=== PATIENT | female | born 1960 | race African-American/Black ===

== ENCOUNTER → 2016-03-01 16:20 | Outpatient (CLI) | payer MEDICARE ==
[2015-11-22 23:57] VITALS: BMI 41.3
[~2016-03-01 16:20] MED LIST: AMBIEN10 MG PO; ASPIRIN 81 MG E81 MG PO; BENICAR HCT 40-1 TA1 PO; BENICAR40 MG PO; BETAPACE 120 M120 MG PO; BETAPACE240 MG PO; CARAFATE1 G PO; CARAFATE1 G/10 ML PO; CARDIZEM CD120 MG PO; CARDIZEM CD240 MG PO; CATAPRES0.1 MG PO; COREG25 MG PO; COZAAR100 MG PO; ELIQUIS2.5 MG PO; ELIQUIS5 MG PO; FERREX 150 PLUS1 CAP PO; HYDRALAZINE HCL25 MG PO; HYDRALAZINE HCL50 MG PO; HYDROCODON-ACE1 EAC7 PO; IMDUR60 MG PO; K-DUR20 MEQ PO; NITRO-DUR0.1 MG TRANSDERM; NITROSTAT0.4 MG SL; NORVASC10 MG PO; PLAVIX75 MG PO; PRAVACHOL40 MG PO; PREVACID30 MG PO; PROAIR HFA8.5 GM INH; PROTONIX40 MG PO; RYTHMOL150 MG PO; STERAPRED 5MG 125 MG PO; TOPROL XL25 MG PO; ULTRAM50 MG PO; [UNRECOGNIZED DRUG - REMARK] PO
== END | disposition home or self-care (01) ==
LOC: D.MAMMO 10:30
DX: R92.8 Other abnormal and inconclusive findings on diagnostic imaging of breast (principal)

== ENCOUNTER 2016-05-12 08:32 | Day surgery (SDC) | payer MEDICARE ==
[~2016-05-12] VITALS: Ht 162.6 cm; Wt 110.5 kg
[~2016-05-12 08:32] MED LIST changes: -NITRO-DUR0.1 MG TRANSDERM
[2016-05-12 09:22] VITALS: BP 136/85; Ht 162.6 cm; Wt 110.5 kg
[2016-05-12] MEDS ORDERED: NITRO-DUR0.1 MG TRANSDERM (09:34)
[2016-05-12 10:19] LABS: ANION GAP 12.5 mmol/L (8-16); CALCIUM 8.8 mg/dL (8.5-10.1); CREATININE - SERUM 1.2 mg/dL (0.6-1.3); POTASSIUM - SERUM 3.5 mmol/L (3.5-5.1)
[2016-05-12 10:21] LABS: BASOPHILS 0.4 % (0.0-2.0); EOSINOPHILS 1.1 % (0-7); HEMOGLOBIN 12.8 g/dL (12-16); LYMPHOCYTES 44.1 % (15-50); MCH 25.2 pg (26.0-34.0); MCV 78.9 fL (80.0-100.0); MEAN PLATELET VOLUME 12.1 fL (7.4-10.4); MONOCYTES 7.1 % (2-11); NEUTROPHILS 47.3 % (40-80); PLATELET COUNT 251 10x3/uL (130-400); RBC 5.07 10x6/uL (4.00-5.40); RDW 16.6 % (11.5-14.5); WBC 5.5 10x3/uL (4.8-10.8)
[2016-05-12 11:15] LABS: APTT 29.9 SECONDS (22.8-39.4); INR 1.03 (0.85-1.17); PROTIME 13.4 SECONDS (11.6-15.0)
--- NOTE | 2016-05-12 13:57 | NUR ---
IV DC WITH CATHER TIP INTACT
--- NOTE | 2016-05-12 14:15 | NUR ---
1250-DILATE ESOPHAGUS WIH 54 SAVORY DILATOR.
--- NOTE | 2016-05-16 18:58 | HP ---
PATIENT: ANTHONY MENDOZA MEDICAL RECORD: [id number] ACCOUNT: [id number] LOCATION:[facility] : 56 ADMISSION DATE: 05/12/16 HISTORY AND PHYSICAL EXAMINATION REFERRING PHYSICIAN: Dora Laura MD. HISTORY OF PRESENT ILLNESS: The patient is a 56-year-old black female, who basically presents for evaluation of persistent reflux symptomatology, mainly in the upper chest area associated with occasional oropharyngeal dysphagia. She has not had much response to trials with PPIs and Carafate. She actually had an EGD back in 2014 that revealed H. pylori gastritis, but otherwise normal. She had a recent normal colonoscopy in October 2015, other than small internal hemorrhoids. She was now for further evaluation. She has been dealing with some problems with iron deficiency anemia. She had been on aspirin, Plavix and Eliquis recently, but her aspirin has been discontinued. PAST MEDICAL HISTORY: As above. She also has hypertension, AFib and cerebrovascular disease. PAST SURGICAL HISTORY: Negative. FAMILY HISTORY: Negative for GI disease. SOCIAL HISTORY: The patient is a former smoker. She denies alcohol use. REVIEW OF SYSTEMS: Noncontributory other than in HPI. CURRENT MEDICATIONS: Include Benicar/HCTZ, Plavix, diltiazem, Eliquis, hydralazine, potassium, pravastatin, sotalol and Carafate. PHYSICAL EXAMINATION: GENERAL: Reveals a well-developed, well-nourished, middle-aged black female in no acute distress. VITAL SIGNS: Stable. She is afebrile. CHEST: Clear. HEART: Regular rate and rhythm. ABDOMEN: Soft, nontender. EXTREMITIES: No edema. IMPRESSION: 1. Persistent atypical reflux symptomatology associated with occasional dysphagia of uncertain etiology. Rule out a component of "irritable esophagus", atypical reflux disease, etc. 2. History of iron deficiency anemia diagnosed in late January 2015, still of unclear etiology, probably due to her multiple blood thinners that she has been taking. She had a recently normal colonoscopy other than small internal hemorrhoids as noted above. PLAN: EGD. TRANSINT:[id number] Voice Confirmation ID: [id number] DOCUMENT ID: [id number] HISTORY AND PHYSICAL [id number] ANTHONY MENDOZA JOHN MD at 1240 CC: DORA LAURA MD [id number] DICTATION DATE: 05/12/16 1241 CONCRETE BLOCK MAKER: 05/12/[address] [facility] [place] 05/12/16 [place] [id number] [place] [address]
--- NOTE | 2016-05-16 18:58 | PRO ---
PATIENT:ANTHONY MENDOZA MEDICAL RECORD: [id number] : 56 LOCATION:D.OPS ADMISSION DATE: 05/12/16 PROCEDURE PERFORMED BY: CANDI LIN MD DATE OF PROCEDURE: 05/12/2016 CRACKING MACHINE OPERATOR: Candi Lin MD PROCEDURE: EGD with biopsy times 2 and Savary dilatation to a 54-Singaporean size. INDICATION: The patient is a 56-year-old black female with history of coronary artery disease, AFib, and hypertension, who basically presents for evaluation of persistent problems with atypical reflux, mainly in the upper chest area associated with occasional oropharyngeal dysphagia. She has not been responsive to Carafate and/or PPIs, it seems. She had a normal EGD in 2014 other than H. pylori gastritis, which was supposedly treated with appropriate antibiotics. She had a normal colonoscopy last year and small internal hemorrhoids. She is now for repeat EGD. PREMEDICATION: Taper anesthesia. INSTRUMENT: Olympus video gastroscope. FINDINGS: The endoscope was passed through the oropharynx to the second portion of the duodenum without difficulty. The esophagus was essentially normal. There was minimal stenosis at the GE junction. I therefore, dilated with a 54-Singaporean Savary dilator. I also took some biopsies from the mid esophagus to rule out eosinophilic esophagitis, microscopic reflux esophagitis, etc. In the stomach, there is no significant hiatal hernia and there was no active esophagitis seen. The stomach was entered and was remarkable for very mild antral gastritis with one tiny erosion in the prepyloric area. This area was biopsied to try to document H. pylori eradication. The duodenum was entered and was completely normal. The patient tolerated the procedure well without complication. IMPRESSION: 1. Minimal stenosis at the GE junction, now status post Savary dilatation with a 54-Singaporean size. 2. Minimal antral gastritis with one tiny erosion in the prepyloric area, now status post biopsy to rule out H. pylori eradication. 3. Otherwise, normal EGD without any obvious reason seen to account for the patient's symptomatology. RECOMMENDATIONS: 1. Follow up biopsy results times 2. 2. Okay to continue Carafate. Consider trying a PPI once again. 3. Follow up with me on an as needed basis. TRANSINT:[id number] Voice Confirmation ID: [id number] DOCUMENT ID: [id number] PROCEDURE NOTE [id number] MENDOZA,CANDI OCONNELL MD at 1858 CC: ZHAO LAURA MD [id number] DICTATION DATE: 05/12/16 1258 COMBINING MACHINE OPERATOR: 05/13/16 0040 [facility] [place] 05/12/16 [facility] [address] [place] [address]
== END 2016-05-12 14:15 | disposition home or self-care (01) ==
LOC: D.OPS 08:32
PROVIDERS: Anesthesiology
DX: R13.10 Dysphagia, unspecified (principal); R10.9 Unspecified abdominal pain; F17.200 Nicotine dependence, unspecified, uncomplicated; J45.909 Unspecified asthma, uncomplicated; I10 Essential (primary) hypertension; K21.9 Gastro-esophageal reflux disease without esophagitis; Z95.5 Presence of coronary angioplasty implant and graft; K29.70 Gastritis, unspecified, without bleeding; K22.2 Esophageal obstruction; I25.119 Atherosclerotic heart disease of native coronary artery with unspecified angina pectoris

== ENCOUNTER 2016-06-10 12:44 | Emergency (ER) | payer MEDICARE ==
[2016-05-12 09:22] VITALS: BMI 41.8
[~2016-06-10 12:44] MED LIST changes: +NITRO-DUR0.1 MG TRANSDERM
[2016-06-10 14:37] LABS: BASOPHILS 0.2 % (0-2); EOSINOPHILS 0.7 % (0-7); HEMATOCRIT 34.5 % (36.0-48.0); HEMOGLOBIN 10.9 g/dL (12-16); IMMATURE GRANULOCYTES 0.3 % (0-5); MCH 24.8 pg (26.0-34.0); MCHC 31.6 g/dL (31.0-37.0); MCV 78.4 fL (80.0-100.0); MEAN PLATELET VOLUME 11.5 fL (7.4-10.4); MONOCYTES 5.7 % (2-11); NEUTROPHILS 52.1 % (40-80); PLATELET COUNT 292 10x3/uL (130-400); RDW 17.8 % (11.5-14.5); WBC 5.8 10x3/uL (4.8-10.8)
[2016-06-10 14:58] LABS: ALKALINE PHOSPHATASE 154 U/L (46-116); ALT (SGPT) 20 U/L (10-68); BILIRUBIN - TOTAL 0.39 mg/dL (0.2-1.3); CALC OSMOLALITY 283 mosm/kg (275-300); CALCIUM 8.8 mg/dL (8.5-10.1); CARBON DIOXIDE 28.6 mmol/L (21.0-32.0); CHLORIDE - SERUM 105 mmol/L (98-107); CREATININE - SERUM 0.8 mg/dL (0.6-1.3); GLUCOSE 92 mg/dL (74-106); PROTEIN - SERUM 7.2 g/dL (6.4-8.2); SODIUM 142 mmol/L (136-145); UREA NITROGEN 14 mg/dL (7-18); eGFR NON AFRICAN AMERICAN 78 mL/min (90-120)
[2016-06-10 15:06] LABS: AMYLASE - SERUM 93 U/L (25-115); LIPASE 113 U/L (73-393); PRO BNP 1979 pg/mL (0-125); TROPONIN-I 0.029 ng/mL (0.000-0.060)
== END 2016-06-10 17:05 | disposition home or self-care (01) ==
LOC: D.ER 12:44
PROVIDERS: Family Medicine
DX: R53.1 Weakness (principal); I48.92 Unspecified atrial flutter; I10 Essential (primary) hypertension; I25.10 Atherosclerotic heart disease of native coronary artery without angina pectoris; E87.6 Hypokalemia

== ENCOUNTER → 2016-06-16 | Emergency (ER) | payer MEDICARE ==
[2016-05-12 09:22] VITALS: BMI 41.8
--- NOTE | ~2016-06-16 | HEMODYNAMI ---
PATIENT:ANTHONY MENDOZA MEDICAL RECORD: [id number] : 56 LOCATION:[facility] ADMISSION DATE: 06/16/16 Generatedon:06/16/201613:01 Patient name: ANTHONY MENDOZA Patient #: [id number] SSN: D OB: 1960 Date of study: 06/16/2016 Page: Of Hemodynamic Procedure Report Patient Data Patient Demographics Procedure consent was obtained First Name: ANTHONY Gender: Female Last Name: REJI : 1960 [facility] Initial: ESTER Age: 56 year(s) Patient #: [id number] Race: Black Additional ID: [id number] Contact details [address]: [address] [place] [address] 2 State: [place] City: [facility] Zip code: [address] Past Medical History History of disease Date Diagnosis Comments CAD Allergies Allergen Reaction Date Comments Reported Other allergy 02/06/2014 Amiodarone, Benazepril, Flu Shot, Lactulose Other allergy 05/25/2014 Milk Other allergy 05/25/2014 Flu vaccine Other allergy 05/25/2014 Loenazepril Admission Admission Data Admission Date: 06/16/2016 Admission Time: 9:34 Lab Results Lab Result Date: 06/16/2016 Lab Result Time: 12:50 Biochemistry Name Units Result Min Max CK-MB ng/ml 0.8 --(*---)-- 0 3.6 Creatinine l 79 --(-*--)-- 21 215 Kinase Troponin l ng/ml 0.017 --(-*--)-- 0 0.06 Procedure Procedure Types Cath Procedure Diagnostic Procedure [facility] w/Coronaries PCI Procedure Coronary Stent Initial Miscellaneous Procedures Moderate Sedation up to 15 minutes Procedure Description Procedure Date Procedure Date: 06/16/2016 Procedure Start Time: 12:46 Procedure End Time: 13:01 Procedure Staff Name Function Dax Reynoso MD Performing Physician Zurdo Gonzalez RT Scrub Elena Osorio RN Nurse Kevin Suit RT Monitor Procedure Data Cath Procedure Fluoroscopy Diagnostic fluoroscopy Total fluoroscopy Time: 1.5 time: 1.5 min min Diagnostic fluoroscopy Total fluoroscopy dose: dose: 519.81 mGy 519.81 mGy Contrast Material Contrast Material Type Amount (ml) Isovue 300 87 Entry Location Entry Primary Successful Side Size Upsize Upsize Entry Closure Succes sful Closure Location (Fr) 1 (Fr) 2 (Fr) Remarks Device Remarks Femoral Right 5 Fr Exoseal artery Diagnostic catheters Device Type Used For End Catheter Placement Cordis 5Fr Pigtail LV Angiography Catheter (MP) Cordis 5Fr JL 4.0 Left Coronary Catheter (MP) Angiography Cordis 5Fr 3DRC Catheter Right Coronary (MP) Angiography Procedure Complications No complications Procedure Medications Medication Administration Route Dosage Oxygen NC 2 l/min Heparin Flush Bag added to field 2 bags (1000units/500ml NS) Lidocaine 2% added to field 20 Versed I.V. 1 mg Fentanyl I.V. 50 mcg Heparin Bolus I.V. 4000 units Versed I.V. 1 mg Fentanyl I.V. 50 mcg Hemodynamics Rest HGB: 12.4 (g/dl) Heart Rate: 87 (bpm) Snapshots Pre Cath Intra NCS Post Cath Vital Signs Time Heart Resp SPO2 NIBP (mmHg) Rhythm Pain Sedation Rate (ipm) (%) Status Level (bpm) 12:32:37 93 15 100 190/118(154) A-Flutter 0 (11) 10(A) , No pain 12:37:01 81 21 100 182/110(135) A-Flutter 0 (11) 10(A) , No pain 12:41:32 83 18 100 166/100(137) A-Flutter 0 (11) 10(A) , No pain 12:45:58 91 14 98 147/113(127) A-Flutter 0 (11) 10(A) , No pain 12:50:10 83 19 97 139/91(121) A-Flutter 0 (11) 9(A) , No pain 12:54:26 92 14 98 143/100(116) A-Flutter 0 (11) 9(A) , No pain 12:57:16 80 12 99 152/101(133) A-Flutter 0 (11) 9(A) , No pain Medications Time Medication Route Dose Verified Delivered Reason Notes Effectiveness by by 12:34:44 Oxygen NC 2 Dax Elena Per physician l/min Edgardo Osorio RN 12:35:00 Heparin Flush added 2 Dax Verduzco used for Bag to bags Edgardo Reynoso MD procedure (1000units/500ml field NS) 12:35:11 Lidocaine 2% added 20ml Dax Verduzco used for to vial Edgardo Reynoso MD procedure field 12:45:34 Versed I.V. 1 mg Dax Elena for sedation Edgardo Osorio RN 12:45:40 Fentanyl I.V. 50 Dax Elena for sedation mcg Edgardo Osorio RN 12:47:36 Versed I.V. 1 mg Dax Elena for sedation Edgardo Osorio RN 12:47:43 Fentanyl I.V. 50 Dax Elena for sedation mcg Edgardo Osorio RN 12:51:04 Heparin Bolus I.V. 4000 Dax Elena for dose units Edgardo Osorio RN anticoagulation verfied with dr reynoso Procedure Log Time Note 12:10:07 Zurdo Gonzalez RT(R) sent for patient. Start room use. 12:16:51 ACC Patient presents with Stable Angina CCS Anginal Class 1--Ordinary physical activity does not cause angina, angina occurs with strenuos, rapid, or prolonged activity.. 12:16:53 ACC Patient presents with Unstable Angina CCS Anginal Class 3--Marked limitation of physical activity, angina occurs with ordinary activity.. 12:17:05 Diagnostic Cath status Urgent 12:18:19 Time tracking: Regular hours 12:18:26 Plan of Care:Hemodynamics will remain stable., Cardiac rhythm will remain stable., Comfort level will be maintained., Respiratory function will remain adequate., Patient/ family verbilizes understanding of procedure., Procedure tolerated without complication., Recovers from procedure without complications.. 12:25:56 Patient received from ED to CCL 3 Alert and oriented. Tansferred to table in Supine position. 12:31:06 Warm blankets applied, and ja hugger turned on for patient comfort. 12:31:06 Correct patient and procedure confirmed by team. 12:31:07 Signed procedure consent form obtained from patient. 12:31:08 ECG and BP/O2 sat monitors applied to patient. 12:31:18 Vital chart was started 12:34:44 Oxygen 2 l/min NC was administered by Elena Osorio RN; Per physician; 12:35:00 Heparin Flush Bag (1000units/500ml NS) 2 bags added to field was administered by Dax Reynoso MD; used for procedure; 12:35:11 Lidocaine 2% 20ml vial added to field was administered by Dax Reynoso MD; used for procedure; 12:40:04 Baseline sample Acquired. 12:40:34 Rhythm: atrial flutter 12:40:36 Full Disclosure recording started 12:40:40 H&P Date Dictated: 06/16/2016 Within 30 days and on chart.. 12:41:09 Pre-procedure instructions explained to patient. 12:41:11 Family unavailable. 12:41:14 Patient NPO since Breakfast. 12:41:45 Is the patient allergic to Iodine/contrast media? No. 12:41:49 Is patient on blood thinner?Yes 12:41:52 ACC The patient was administered the following blood thiners within the last 24 hours: ACCPlavix, Eliquis 12:41:55 Patient diabetic? No. 12:41:56 ----Pre-sedation anethsthesia assessment.---- 12:41:59 Previous problem with sedation/anesthesia? No ? 12:42:00 Snore? Yes 12:42:01 Sleep apnea? Yes 12:42:02 Deviated septum? No 12:42:04 Opens mouth fully? Yes 12:42:05 Sticks out tongue? Yes 12:42:07 Airway obstruction? No ? 12:42:09 Dentures? No ? 12:42:12 Pre procedure: right dorsailis pedis pulse 1+ Palpable, but thready & weak; easily obliterated 12:42:19 Patient pain scale 4/10 cp. 12:42:28 IV patent on arrival in right forearm with 0.9% NaCl at 10ml/hr. 12:45:10 Lab Result : Creatinine 1.1 mg/dl 12:45:10 Lab Result : BUN 20 mg/dl 12:45:10 Lab Result : Hemoglobin 12.4 g/dl 12:45:10 Lab Result : INR 1.09 units 12:45:10 Lab Result : PT 13.9 sec 12:45:16 Lab results completed and on chart. 12:45:19 Right groin area was prepped with chlora-prep and draped in sterile fashion 12:45:19 Alarms reviewed by R. N. 12:45:20 Sharps counted by scrub and verified by R.N. 12:45:20 --------ALL STOP TIME OUT------ 12:45:21 Final Timeout: patient, procedure, and site verified with staff and physician. All members of the team are in agreement. 12:45:22 Right groin site verified by team. 12:45: Physical assessment completed. ASA score P 2 - A patient with mild systemic disease as per Dax Reynoso MD. 12:45:30 Sedation plan: IV Moderate Sedation Versed, Fentanyl 12:45:34 Versed 1 mg I.V. was administered by Elena Osorio RN; for sedation; 12:45:40 Fentanyl 50 mcg I.V. was administered by Elena Osorio RN; for sedation; 12:45:41 Zero performed for pressure channel P1 12:45:46 Zero performed for pressure channel P1 12:45:56 Use device set Femoral Dx 12:45:57 Acist Syringe opened to sterile field. 12:45:57 Bag Decanter opened to sterile field. 12:45:58 Medline Cath Pack opened to sterile field. 12:45:58 Terumo 5Fr [place] Sheath opened to sterile field. 12:45:59 St Andrae 260cm J .035 wire opened to sterile field. 12:46:00 Acist Hand Control opened to sterile field. 12:46:01 Acist Manifold opened to sterile field. 12:46:01 Diagnostic Infinity 5Fr Multipack catheter opened to sterile field. 12:46:01 Tegaderm 4 x 4 opened to sterile field. 12:46:18 Procedure started. 12:46:26 Local anesthetic to right femoral artery with Lidocaine 2% by Dax Reynoso MD.INITIAL ACCESS ONLY 12:46:34 A 5 Fr sheath was inserted into the Right Femoral artery 12:46:40 A Cordis 5Fr Pigtail Catheter (MP) was advanced over the wire and used for LV Angiography. 12:46:44 LV angiography performed. 12:46:46 LV gram done using SOSA 12:46:51 Injector settings: Ml/sec: 10, Volume: 20, 12:47:00 EF : 40 % 12:47:08 Catheter removed. 12:47:13 A Cordis 5Fr JL 4.0 Catheter (MP) was advanced over the wire and used for Left Coronary Angiography. 12:47:16 LCA angiography performed. 12:47:36 Versed 1 mg I.V. was administered by Elena Osorio RN; for sedation; 12:47:43 Fentanyl 50 mcg I.V. was administered by Elena Osorio RN; for sedation; 12:48:42 Catheter removed. 12:49:23 A Cordis 5Fr 3DRC Catheter (MP) was advanced over the wire and used for Right Coronary Angiography. 12:50:31 Lab Result : CK-MB 0.8 ng/ml 12:50:31 Lab Result : Creatinine Kinase 79 l 12:50:31 Lab Result : Troponin l 0.017 ng/ml 12:50:39 RCA angiography performed. 12:50:40 Catheter removed. 12:50:48 ACC PCI Site: pLAD has 80% stenosis. 12:50:50 ACC Pre-intervention HOLDEN Flow is 3. 12:51:04 Heparin Bolus 4000 units I.V. was administered by Elena Osorio RN; for anticoagulation; dose verfied with dr reynoso 12:51:27 6 Fr XBLAD 3.5 guide catheter was inserted over the wire 12:52:17 WHISPER wire advanced. 12:53:48 Inflation Number: 1 A Biofreedom 3.5 x 8 stent was prepped and advanced across the Prox LAD. The stent was deployed at 15 ARCHANA for 0:12 (min:sec). 12:53:51 Stent catheter was removed intact over wire. 12:53:51 Wire removed. 12:53:51 Guide catheter removed. 12:55:21 Contrast amount:Isovue 300 87ml. 12:55:29 Sheath removed intact; hemostasis achieved with Exoseal to the Right Femoral artery. 12:55:31 Procedure ended.(Physican Out) 12:55:40 Fluoroscopy time 01.50 minutes. 12:55:50 Fluoroscopy dose: 519.81 mGy 12:55:50 Flurop Dose total: 519.81 12:55:52 Sharps counted by scrub and verified by R.N. 12:55:53 Insertion/operative site no bleeding no hematoma. 12:55:55 Post-op/insertion site Right Femoral artery dressed using a 4 x 4 and Tegaderm. 12:55:58 Post right femoral artery:stable 12:56:02 Post Procedure Pulses reassessed and unchanged 12:56:07 Post procedure rhythm: atrial flutter 12:56:09 Post procedure instruction explained to patient.Patient verbalizes understanding. 12:56:23 Procedure type changed to Cath procedure, Diagnostic procedure, LHC, LHC w/Coronaries, PCI procedure, Coronary Stent Initial, Miscellaneous Procedures, Moderate Sedation up to 15 minutes 12:56:27 Procedure and supply charges have been captured, reviewed, submitted and are correct. 12:56:41 Tenorio Whisper J 300cm 0.014 guide wire opened to sterile field. 12:56:42 Merit BasixCompak Inflation Kit opened to sterile field. 12:56:42 Terumo 6Fr [place] Sheath opened to sterile field. 12:56:42 Cordis 6FR XBLAD 3.5 guide catheter opened to sterile field. 12:56:43 Cordis 6Fr Exoseal opened to sterile field. 12:56:48 Procedure Complication : No complications 13:00:59 Vital chart was stopped 13:01:00 See physician's report for complete and final results. 13:01:02 Report given to Pre/Post Procedure Room. 13:01:05 Patient transfered to Pre/Post Procedure Room with Stretcher. 13:01:06 Procedure ended. 13:01:06 Full Disclosure recording stopped 13:01:12 End room use (Document Last) 13:01:12 End room use (Document Last) Intervention Summary Intervention Notes Time ActionType Lesion and Equipment Action# Pressure Duration Attributes Used 12:53:48 Place stent Prox LAD Biofreedom 1 15 00:12 3.5 x 8 stent Device Usage Item Name Manufacture Quantity Catalog Hospital Part Current Minimal Lot# / Number Charge Number Stock Stock Serial# Code [facility] Acist 1 54636 483067 083942 135478 20 Syringe [employer] Inc Bag Microtek 1 2002S 887819 99554 785790 5 Dec[employer]canbesponsored [employer]. Medline Cardinal 1 [id number] 448907 08019 177907 5 Cath Alticast Terumo 5Fr Terumo 1 ERW747 415282 776644 434423 [address] Andrae 1 560471 974437 118052 349306 30 260cm J .035 wire Acist Hand Acist 1 72830 063424 450347 165227 5 Control Medical Systems Inc Acist Acist 1 65905 140004 390268 732582 5 Manifold Medical Systems Inc Diagnostic Cardinal 1 MG9089 816707 88100 206600 30 quietrevolutionity Health 5Fr Multipack catheter Tegaderm 4 3M 1 1626W 184480 666837 745003 5 x 4 Cordis 5Fr Cardinal 1 888892 5 Pigtail Health Catheter (MP) Cordis 5Fr Cardinal 1 025890 5 JL 4.0 Health Catheter (MP) Cordis 5Fr Cardinal 1 573051 5 [facility] Health Catheter (MP) Biofreedom Biosensors 1 [facility]2-9515 348046 359766 5 [id number] 3.5 x 8 [employer] SA stent Tenorio Tenorio 1 [id number] 919782 999016 888814 5 Whisper J Vascular 300cm 0.014 guide wire Merit Merit 1 OQ5677 484954 302243 958920 15 Pro[employer] Medical Inflation Kit Terumo 6Fr Terumo 1 PRV521 295923 768176 606308 40 [place] Sheath Cordis 6FR Cardinal 1 [id number] 623764 727920 147067 10 XBLAD 3.5 Health guide catheter Cordis 6Fr Cardinal 1 EX600 676644 251080 746493 10 [facility] Signature Audit Mittie Stage Time Signature Unsigned Intra-Procedure 06/16/2016 Kevin Johnson 1:01:50 PM RT(R) Signatures Monitor : Kevin Johnson RT Signature : Date : Time : [facility] [address] [facility] [address]
[2016-06-16 10:04] LABS: BASOPHILS 0.1 % (0-2); EOSINOPHILS 0.7 % (0-7); HEMOGLOBIN 12.4 g/dL (12-16); IMMATURE GRANULOCYTES 0.1 % (0-5); LYMPHOCYTES 43.7 % (15-50); MCH 25.3 pg (26.0-34.0); MCHC 31.8 g/dL (31.0-37.0); MCV 79.6 fL (80.0-100.0); MEAN PLATELET VOLUME 11.4 fL (7.4-10.4); MONOCYTES 6.8 % (2-11); NEUTROPHILS 48.6 % (40-80); RDW 17.8 % (11.5-14.5); WBC 6.9 10x3/uL (4.8-10.8)
[2016-06-16 10:06] LABS: PLATELET COUNT 358 10x3/uL (130-400)
[2016-06-16 10:23] LABS: ALBUMIN 3.1 g/dL (3.4-5.0); ALKALINE PHOSPHATASE 142 U/L (46-116); ALT (SGPT) 19 U/L (10-68); BILIRUBIN - TOTAL 0.27 mg/dL (0.2-1.3); CALC OSMOLALITY 282 mosm/kg (275-300); CALCIUM 9.1 mg/dL (8.5-10.1); CARBON DIOXIDE 29.4 mmol/L (21.0-32.0); CHLORIDE - SERUM 105 mmol/L (98-107); CREATININE - SERUM 1.1 mg/dL (0.6-1.3); GLUCOSE 111 mg/dL (74-106); POTASSIUM - SERUM 3.3 mmol/L (3.5-5.1); SODIUM 140 mmol/L (136-145); UREA NITROGEN 20 mg/dL (7-18); eGFR NON AFRICAN AMERICAN 54 mL/min (90-120)
[2016-06-16 10:38] LABS: APTT 34.7 SECONDS (22.8-39.4); CKMB 0.8 U/L (0.0-3.6); CREATINE KINASE 79 UL (21-215); INR 1.09 (0.85-1.17); PROTIME 13.9 SECONDS (11.6-15.0)
[2016-06-16 10:41] LABS: TROPONIN-I < 0.017 ng/mL (0.000-0.060)
--- NOTE | 2016-06-16 13:32 | NUR ---
1330-RESTING WITH RIGHT LEG STRAIGHT, GROIN-CDI, NO HEMATOMA OR BLEEDING AT SITE, SOFT TO TOUCH.
--- NOTE | 2016-06-16 14:12 | NUR ---
1400-RESTING WITH EYES CLOSED, RIGHT GROIN REMAINS CDI, SOFT TO TOUCH
--- NOTE | 2016-06-16 17:30 | NUR ---
1630-LAB HERE FOR POST BLOOD DRAW, EKG DONE. 1650-IV D'C WITH CATH TIP INTACT, WRITTEN AND VERBAL INSTRUCTIONS GIVEN, AWAITING AUNT FOR TRANSPORTATION, TAKEN TO [place] TO WAIT WITH FRIEND.
--- NOTE | 2016-06-19 10:25 | OP ---
PATIENT NAME: ANTHONY MENDOZA MEDICAL RECORD: [id number] :56 LOCATION:D.ER ADMISSION DATE: SURGEON: LULY DORAN MD DATE OF OPERATION: 06/16/2016 PROCEDURES: 1. PTCA stent LAD. 2. Left heart catheterization. 3. Selective coronary angiography. 4. Left ventriculogram. INDICATION: Angina and coronary artery disease. PROCEDURE IN DETAIL: After informed consent was obtained and after detailed explanation of risks, benefits as well as alternative therapies, the patient elected to proceed with angiogram and angioplasty. The right femoral area was prepped and draped in normal sterile fashion. Right femoral artery was cannulated via modified Seldinger technique with placement of 6-Eritrean sheath. All catheters exchanged through this sheath. FINDINGS: The left ventriculogram was performed in standard 30-degree SOSA view, reveals mild global hypokinesis. Overall ejection fraction 40%. SELECTIVE CORONARY ANGIOGRAPHY: 1. Left main showed no significant angiographic disease. 2. Left anterior descending has previously placed stent proximally. There is at least 80% in-stent restenosis. 3. Left circumflex has a previously stent proximally, as does ramus intermedius, these are widely patent with no significant restenosis. No disease elsewise throughout the circumflex or its branches. 4. Right coronary has moderate irregularities, but no flow-limiting stenosis. PTCA STENT OF THE LAD: The stent used is a 3.5 x 8 mm BioFreedom. There was HOLDEN 3 flow before and after the intervention. The lesion was approximately 6 mm in length and it was a 3.5 mm vessel. OVERALL IMPRESSION: Successful percutaneous transluminal coronary angioplasty stent of the left anterior descending going from 80% initial stenosis to 0% residual. TRANSINT:[id number] Voice Confirmation ID: [id number] DOCUMENT ID: [id number] LULY DORAN MD at 1025 CC: [id number] DICTATION DATE: 06/16/16 1307 JANITORIAL CLEANER: 06/16/16 1549 [place] [id number]
--- NOTE | 2016-06-19 10:25 | CN ---
PATIENT NAME:ANTHONY MENDOZA MEDICAL RECORD: [id number] : 56 LOCATION:.ER ADMIT DATE: ACCOUNT: [id number] CONSULTING PHYSICIAN: LULY DORAN MD REFERRING PHYSICIAN: ADARSH TENOROI MD DATE OF CONSULTATION: 06/16/2016 ADMITTING DIAGNOSES: 1. Unstable angina. 2. Coronary artery disease. 3. Previous multivessel percutaneous transluminal coronary angioplasty stent, last being in April of 2015. 4. Atrial fibrillation, chronic. 5. Eliquis anticoagulation for atrial fibrillation. 6. Hypertension. 7. Asthma. 8. Gastroesophageal reflux disease. HISTORY OF PRESENT ILLNESS: Mrs. Mendoza presents with angina. She presented with similar angina 2 weeks ago. She has continued to have a burning sensation in her chest. Last cardiac intervention was in April. This is very similar to her previous angina. She is in atrial fibrillation. She is on Eliquis. PHYSICAL EXAMINATION: GENERAL APPEARANCE: Well-nourished, well-developed, appears stated age. Level of distress, comfortable. PSYCHIATRIC: Mental status, alert, normal affect. Orientation, oriented to time, place and person. EYES: Lids and conjunctiva, noninjected. No discharge, no pallor. ENT: Lips, teeth, gums, normal dentition. Oropharynx, no cyanosis, no pallor. NECK: Carotid arteries, bilateral normal upstroke, no bruits, no thrills. JUGULAR VEINS: No jugular venous pressure or distention. CERVICAL LYMPH NODES: Nontender, nonenlarged. THYROID: Not enlarged. Nontender. No nodules. LUNGS: Respiratory effort, unlabored. CHEST: Normal curvature. No thoracic deformity. No chest wall tenderness. Percussion, resonant. Auscultation, clear. No wheezes, no rales, no rhonchi. CARDIOVASCULAR: Precordial exam, nondisplaced. No heaves or pericardial thrills. Rate and rhythm, regular. Heart sounds, normal S1, normal S2. No S3, no gallop, no rub. Systolic murmur, not heard. Diastolic murmur, not heard. EXTREMITIES: No cyanosis, no edema. Peripheral pulses, full and equal in all extremities, except as noted. No bruits appreciated. ABDOMEN: Soft, nondistended. Normal aorta. No bruit. Nontender. No masses. Liver, nontender, no hepatomegaly. Spleen, nontender, no splenomegaly. MUSCULOSKELETAL: No joint tenderness. No joint swelling. No erythema. NEUROLOGICAL: Normal gait, normal strength, normal tone. SKIN: Warm and dry. REVIEW OF SYSTEMS: The patient reports easy bruising but reports no swollen glands. The patient reports no fever, no night sweats, no significant weight gain, no significant weight loss. No significant exercise tolerance. The patient reports no dry eyes, no irritation, no vision change. Patient reports no difficulty hearing and no ear pain. Patient reports no frequent nose bleeds or nose and sinus problems. Patient reports on arm pain on exertion. No shortness of breath while lying down. No history of heart murmur. Patient CONSULT REPORT [id number] REJIANTHONY NORMAN reports no cough, no wheezing or coughing up blood. Patient reports no abdominal pain, no vomiting. Normal appetite. No diarrhea and not vomiting blood. No nausea and no constipation. Patient reports no incontinence. No difficulty urinating. No hematuria. No increased frequency. Patient reports no muscle aches. No weakness, no arthralgias, no back pain. No swelling of the extremities. Patient reports no abnormal mole, no jaundice, no rashes. Reports no loss of consciousness. No weakness and no numbness. No seizures, dizziness, or headaches. The patient reports no depression, no sleep disturbance, feeling safe in a relationship and no alcohol abuse. Patient reports on fatigue. Reports no runny nose or sinus pressure. No itching, no hives, and no frequent sneezing. OVERALL IMPRESSION: Chest pain compatible with angina in a patient with a past history of multivessel coronary artery disease. Most likely, she has recurrent hemodynamically significant coronary artery disease. We will proceed with coronary angiography. Further care depends on the findings of the angiography. TRANSINT:[id number] Voice Confirmation ID: [id number] DOCUMENT ID: [id number] LULY DORAN MD at 1025 CC: [id number] DICTATION DATE: 06/16/16 1058 UX INTERACTION DESIGNER: 06/16/16 1157 [facility] [address] [place] [address]
== END ==
LOC: D.ER 09:34
PROVIDERS: Emergency Medicine
DX: R07.9 Chest pain, unspecified (principal); I10 Essential (primary) hypertension; I25.10 Atherosclerotic heart disease of native coronary artery without angina pectoris; E87.6 Hypokalemia; I48.0 Paroxysmal atrial fibrillation

== ENCOUNTER 2016-06-19 01:53 | Emergency (ER) | payer MEDICARE ==
[2016-05-12 09:22] VITALS: BMI 41.8
[2016-06-19 02:51] LABS: BASOPHILS 0.1 % (0-2); EOSINOPHILS 1.1 % (0-7); HEMATOCRIT 35.3 % (36.0-48.0); HEMOGLOBIN 11.2 g/dL (12-16); IMMATURE GRANULOCYTES 0.1 % (0-5); LYMPHOCYTES 34.3 % (15-50); MCH 25.5 pg (26.0-34.0); MCHC 31.7 g/dL (31.0-37.0); MCV 80.2 fL (80.0-100.0); MEAN PLATELET VOLUME 11.1 fL (7.4-10.4); MONOCYTES 6.5 % (2-11); NEUTROPHILS 57.9 % (40-80); PLATELET COUNT 296 10x3/uL (130-400); RDW 17.8 % (11.5-14.5); WBC 7.1 10x3/uL (4.8-10.8)
[2016-06-19 03:14] LABS: ALBUMIN 2.9 g/dL (3.4-5.0); BILIRUBIN - TOTAL 0.14 mg/dL (0.2-1.3); CALCIUM 8.4 mg/dL (8.5-10.1); CARBON DIOXIDE 29.6 mmol/L (21.0-32.0); CREATININE - SERUM 0.9 mg/dL (0.6-1.3); POTASSIUM - SERUM 3.6 mmol/L (3.5-5.1); PROTEIN - SERUM 7.4 g/dL (6.4-8.2)
[2016-06-19 03:24] LABS: TROPONIN-I 0.02 ng/mL (0.000-0.060)
== END 2016-06-19 03:48 | disposition home or self-care (01) ==
LOC: D.ER 01:53
PROVIDERS: Family Medicine
DX: R20.9 Unspecified disturbances of skin sensation (principal); I10 Essential (primary) hypertension; I25.10 Atherosclerotic heart disease of native coronary artery without angina pectoris; E87.6 Hypokalemia; I48.92 Unspecified atrial flutter; I44.0 Atrioventricular block, first degree

== ENCOUNTER 2016-07-07 13:21 | Emergency (ER) | payer MEDICARE ==
[2016-05-12 09:22] VITALS: BMI 41.8
[2016-07-07 14:22] LABS: BASOPHILS 0.3 % (0-2); EOSINOPHILS 0.7 % (0-7); HEMATOCRIT 36.2 % (36.0-48.0); HEMOGLOBIN 11.6 g/dL (12-16); IMMATURE GRANULOCYTES 0.3 % (0-5); LYMPHOCYTES 37.1 % (15-50); MCH 25.3 pg (26.0-34.0); MEAN PLATELET VOLUME 11.1 fL (7.4-10.4); MONOCYTES 6.3 % (2-11); NEUTROPHILS 55.3 % (40-80); PLATELET COUNT 305 10x3/uL (130-400); RBC 4.58 10x6/uL (4.00-5.40); RDW 17.8 % (11.5-14.5); WBC 7.4 10x3/uL (4.8-10.8)
[2016-07-07 14:35] LABS: ALKALINE PHOSPHATASE 149 U/L (46-116); ALT (SGPT) 20 U/L (10-68); BILIRUBIN - TOTAL 0.23 mg/dL (0.2-1.3); CALC OSMOLALITY 289 mosm/kg (275-300); CALCIUM 9.3 mg/dL (8.5-10.1); CARBON DIOXIDE 27.3 mmol/L (21.0-32.0); CHLORIDE - SERUM 107 mmol/L (98-107); CREATININE - SERUM 1.3 mg/dL (0.6-1.3); GLUCOSE 92 mg/dL (74-106); POTASSIUM - SERUM 3.3 mmol/L (3.5-5.1); PROTEIN - SERUM 7.8 g/dL (6.4-8.2); SODIUM 143 mmol/L (136-145); UREA NITROGEN 26 mg/dL (7-18); eGFR NON AFRICAN AMERICAN 44 mL/min (90-120)
[2016-07-07 14:46] LABS: CHOL - HDL RATIO 2.3 ratio (2.3-4.1); CHOLESTEROL, TOTAL 127 mg/dL (0-200); CREATINE KINASE 94 UL (21-215); HDL CHOLESTEROL 55 mg/dL (32-96); LDL CHOLESTEROL 60 mg/dL (0-100); LDL-HDL RATIO 1.1 ratio (1.5-3.5); TRIGLYCERIDE 62 mg/dL (30-200)
[2016-07-07 14:52] LABS: TROPONIN-I < 0.017 ng/mL (0.000-0.060)
[2016-07-07 15:13] LABS: CKMB 0.6 U/L (0.0-3.6)
== END 2016-07-07 21:09 | disposition home or self-care (01) ==
LOC: D.ER 13:21
PROVIDERS: Emergency Medicine
DX: R07.9 Chest pain, unspecified (principal); I48.91 Unspecified atrial fibrillation; I10 Essential (primary) hypertension; I25.10 Atherosclerotic heart disease of native coronary artery without angina pectoris; I49.3 Ventricular premature depolarization

== ENCOUNTER 2016-08-13 10:36 | Emergency (ER) | payer MEDICARE ==
[2016-05-12 09:22] VITALS: BMI 41.8
[2016-08-13 11:07] LABS: BASOPHILS 0.2 % (0-2); EOSINOPHILS 0.9 % (0-7); HEMATOCRIT 37.7 % (36.0-48.0); HEMOGLOBIN 11.9 g/dL (12-16); IMMATURE GRANULOCYTES 0.2 % (0-5); LYMPHOCYTES 34.3 % (15-50); MCH 25.4 pg (26.0-34.0); MCHC 31.6 g/dL (31.0-37.0); MCV 80.6 fL (80.0-100.0); MEAN PLATELET VOLUME 10.9 fL (7.4-10.4); MONOCYTES 8.2 % (2-11); NEUTROPHILS 56.2 % (40-80); PLATELET COUNT 301 10x3/uL (130-400); RBC 4.68 10x6/uL (4.00-5.40); RDW 16.9 % (11.5-14.5); WBC 8.1 10x3/uL (4.8-10.8)
[2016-08-13 11:18] LABS: ALBUMIN 3.1 g/dL (3.4-5.0); ALKALINE PHOSPHATASE 163 U/L (46-116); ALT (SGPT) 21 U/L (10-68); BILIRUBIN - TOTAL 0.38 mg/dL (0.2-1.3); CALC OSMOLALITY 279 mosm/kg (275-300); CALCIUM 8.8 mg/dL (8.5-10.1); CHLORIDE - SERUM 104 mmol/L (98-107); CREATININE - SERUM 1.2 mg/dL (0.6-1.3); GLUCOSE 107 mg/dL (74-106); POTASSIUM - SERUM 3.5 mmol/L (3.5-5.1); PROTEIN - SERUM 8.1 g/dL (6.4-8.2); SODIUM 139 mmol/L (136-145); UREA NITROGEN 19 mg/dL (7-18); eGFR NON AFRICAN AMERICAN 49 mL/min (90-120)
[2016-08-13 11:30] LABS: CHOL - HDL RATIO 2.3 ratio (2.3-4.1); CHOLESTEROL, TOTAL 126 mg/dL (0-200); CKMB 0.1 U/L (0.0-3.6); CREATINE KINASE 95 UL (21-215); HDL CHOLESTEROL 56 mg/dL (32-96); LDL CHOLESTEROL 61 mg/dL (0-100); LDL-HDL RATIO 1.1 ratio (1.5-3.5); TRIGLYCERIDE 48 mg/dL (30-200)
[2016-08-13 11:36] LABS: TROPONIN-I < 0.017 ng/mL (0.000-0.060)
== END 2016-08-13 14:46 | disposition home or self-care (01) ==
LOC: D.ER 10:36
PROVIDERS: Emergency Medicine
DX: R07.9 Chest pain, unspecified (principal); R06.00 Dyspnea, unspecified; I10 Essential (primary) hypertension; F17.200 Nicotine dependence, unspecified, uncomplicated; I48.92 Unspecified atrial flutter; I44.30 Unspecified atrioventricular block; I49.3 Ventricular premature depolarization

== ENCOUNTER 2016-09-02 11:53 | Emergency (ER) | payer MEDICARE ==
[2016-05-12 09:22] VITALS: BMI 41.8
[2016-09-02 12:49] LABS: BASOPHILS 0.3 % (0-2); EOSINOPHILS 0.7 % (0-7); HEMATOCRIT 39.6 % (36.0-48.0); HEMOGLOBIN 12.4 g/dL (12-16); IMMATURE GRANULOCYTES 0.1 % (0-5); LYMPHOCYTES 36.3 % (15-50); MCH 25.1 pg (26.0-34.0); MCHC 31.3 g/dL (31.0-37.0); MCV 80.2 fL (80.0-100.0); MONOCYTES 5.7 % (2-11); NEUTROPHILS 56.9 % (40-80); PLATELET COUNT 247 10x3/uL (130-400); RBC 4.94 10x6/uL (4.00-5.40); RDW 16.5 % (11.5-14.5); WBC 6.7 10x3/uL (4.8-10.8)
[2016-09-02 13:14] LABS: ALKALINE PHOSPHATASE 148 U/L (46-116); ALT (SGPT) 20 U/L (10-68); CALC OSMOLALITY 283 mosm/kg (275-300); CALCIUM 8.9 mg/dL (8.5-10.1); CHLORIDE - SERUM 105 mmol/L (98-107); CREATININE - SERUM 0.8 mg/dL (0.6-1.3); GLUCOSE 99 mg/dL (74-106); POTASSIUM - SERUM 3.4 mmol/L (3.5-5.1); PROTEIN - SERUM 7.4 g/dL (6.4-8.2); SODIUM 143 mmol/L (136-145); UREA NITROGEN 9 mg/dL (7-18); eGFR NON AFRICAN AMERICAN 78 mL/min (90-120)
[2016-09-02 13:25] LABS: CKMB 0.2 U/L (0.0-3.6); CREATINE KINASE 90 UL (21-215); TROPONIN-I < 0.017 ng/mL (0.000-0.060)
[2016-09-02 15:47] LABS: CKMB 0.3 U/L (0.0-3.6); CREATINE KINASE 89 UL (21-215)
[2016-09-02 15:50] LABS: TROPONIN-I < 0.017 ng/mL (0.000-0.060)
== END 2016-09-02 17:46 | disposition home or self-care (01) ==
LOC: D.ER 11:53
PROVIDERS: Family Medicine
DX: R07.9 Chest pain, unspecified (principal); I10 Essential (primary) hypertension; R94.31 Abnormal electrocardiogram [ECG] [EKG]; I48.92 Unspecified atrial flutter; E11.9 Type 2 diabetes mellitus without complications

== ENCOUNTER → 2016-09-14 17:04 | Outpatient (CLI) | payer MEDICARE ==
[2016-05-12 09:22] VITALS: BMI 41.8
== END | disposition home or self-care (01) ==
LOC: D.MAMMO 13:30
DX: R92.8 Other abnormal and inconclusive findings on diagnostic imaging of breast (principal)

== ENCOUNTER 2016-09-18 07:46 | Emergency (ER) | payer MEDICARE ==
[2016-05-12 09:22] VITALS: BMI 41.8
[2016-09-18 08:24] LABS: BASOPHILS 0.2 % (0-2); EOSINOPHILS 1.1 % (0-7); HEMOGLOBIN 12.3 g/dL (12-16); MCH 25.1 pg (26.0-34.0); MCHC 31.5 g/dL (31.0-37.0); MCV 79.6 fL (80.0-100.0); MEAN PLATELET VOLUME 11.3 fL (7.4-10.4); MONOCYTES 5.8 % (2-11); NEUTROPHILS 52.9 % (40-80); PLATELET COUNT 267 10x3/uL (130-400); RDW 16.5 % (11.5-14.5); WBC 5.5 10x3/uL (4.8-10.8)
[2016-09-18 08:38] LABS: ALKALINE PHOSPHATASE 188 U/L (46-116); ALT (SGPT) 18 U/L (10-68); BILIRUBIN - TOTAL 0.19 mg/dL (0.2-1.3); CALC OSMOLALITY 283 mosm/kg (275-300); CALCIUM 8.6 mg/dL (8.5-10.1); CARBON DIOXIDE 31.2 mmol/L (21.0-32.0); CHLORIDE - SERUM 103 mmol/L (98-107); GLUCOSE 107 mg/dL (74-106); POTASSIUM - SERUM 3.2 mmol/L (3.5-5.1); PROTEIN - SERUM 7.8 g/dL (6.4-8.2); SODIUM 141 mmol/L (136-145); UREA NITROGEN 20 mg/dL (7-18); eGFR NON AFRICAN AMERICAN 60 mL/min (90-120)
[2016-09-18 08:48] LABS: CKMB 0.2 U/L (0.0-3.6); CREATINE KINASE 88 UL (21-215)
[2016-09-18 08:51] LABS: TROPONIN-I < 0.017 ng/mL (0.000-0.060)
== END 2016-09-18 10:05 | disposition home or self-care (01) ==
LOC: D.ER 07:46
PROVIDERS: Emergency Medicine
DX: R07.9 Chest pain, unspecified (principal); I10 Essential (primary) hypertension; F17.200 Nicotine dependence, unspecified, uncomplicated; R06.00 Dyspnea, unspecified; R11.0 Nausea; I44.30 Unspecified atrioventricular block

== ENCOUNTER 2016-10-23 09:03 | Emergency (ER) | payer MEDICARE ==
[2016-05-12 09:22] VITALS: BMI 41.8
[2016-10-23 09:48] LABS: BASOPHILS 0.3 % (0-2); EOSINOPHILS 0.8 % (0-7); HEMATOCRIT 36.8 % (36.0-48.0); HEMOGLOBIN 11.8 g/dL (12-16); IMMATURE GRANULOCYTES 0.2 % (0-5); LYMPHOCYTES 32.5 % (15-50); MCH 25.3 pg (26.0-34.0); MCHC 32.1 g/dL (31.0-37.0); MEAN PLATELET VOLUME 11.2 fL (7.4-10.4); MONOCYTES 6.3 % (2-11); NEUTROPHILS 59.9 % (40-80); PLATELET COUNT 258 10x3/uL (130-400); RBC 4.66 10x6/uL (4.00-5.40); RDW 17.3 % (11.5-14.5); WBC 6.3 10x3/uL (4.8-10.8)
[2016-10-23 10:12] LABS: ALBUMIN 2.7 g/dL (3.4-5.0); ALKALINE PHOSPHATASE 161 U/L (46-116); ALT (SGPT) 16 U/L (10-68); BILIRUBIN - TOTAL 0.24 mg/dL (0.2-1.3); CALC OSMOLALITY 291 mosm/kg (275-300); CALCIUM 8.5 mg/dL (8.5-10.1); CARBON DIOXIDE 26.3 mmol/L (21.0-32.0); CHLORIDE - SERUM 106 mmol/L (98-107); CHOL - HDL RATIO 2.4 ratio (2.3-4.1); CHOLESTEROL, TOTAL 109 mg/dL (0-200); CREATINE KINASE 87 UL (21-215); GLUCOSE 149 mg/dL (74-106); HDL CHOLESTEROL 46 mg/dL (32-96); LDL CHOLESTEROL 56 mg/dL (0-100); LDL-HDL RATIO 1.2 ratio (1.5-3.5); PROTEIN - SERUM 7.3 g/dL (6.4-8.2); SODIUM 144 mmol/L (136-145); TRIGLYCERIDE 39 mg/dL (30-200); TROPONIN-I < 0.017 ng/mL (0.000-0.060); UREA NITROGEN 17 mg/dL (7-18); eGFR NON AFRICAN AMERICAN 60 mL/min (90-120)
== END 2016-10-23 10:58 | disposition home or self-care (01) ==
LOC: D.ER 09:03
PROVIDERS: Emergency Medicine
DX: R07.9 Chest pain, unspecified (principal); I25.10 Atherosclerotic heart disease of native coronary artery without angina pectoris; M25.562 Pain in left knee; I10 Essential (primary) hypertension

== ENCOUNTER 2016-11-18 11:27 | Observation (INO) | payer MEDICARE ==
[2016-11-18 12:56] LABS: BASOPHILS 0.2 % (0-2); EOSINOPHILS 1.1 % (0-7); HEMATOCRIT 39.4 % (36.0-48.0); HEMOGLOBIN 12.4 g/dL (12-16); IMMATURE GRANULOCYTES 0.2 % (0-5); LYMPHOCYTES 34.3 % (15-50); MCH 25.1 pg (26.0-34.0); MCHC 31.5 g/dL (31.0-37.0); MCV 79.8 fL (80.0-100.0); MEAN PLATELET VOLUME 11.1 fL (7.4-10.4); NEUTROPHILS 57.2 % (40-80); PLATELET COUNT 271 10x3/uL (130-400); RBC 4.94 10x6/uL (4.00-5.40); RDW 17.9 % (11.5-14.5); WBC 6.3 10x3/uL (4.8-10.8)
[2016-11-18 13:13] LABS: ALBUMIN 2.9 g/dL (3.4-5.0); ALKALINE PHOSPHATASE 159 U/L (46-116); ALT (SGPT) 22 U/L (10-68); BILIRUBIN - TOTAL 0.49 mg/dL (0.2-1.3); CALC OSMOLALITY 279 mosm/kg (275-300); CALCIUM 8.9 mg/dL (8.5-10.1); CARBON DIOXIDE 28.4 mmol/L (21.0-32.0); CHLORIDE - SERUM 104 mmol/L (98-107); CREATININE - SERUM 0.9 mg/dL (0.6-1.3); GLUCOSE 97 mg/dL (74-106); POTASSIUM - SERUM 3.2 mmol/L (3.5-5.1); PROTEIN - SERUM 7.8 g/dL (6.4-8.2); SODIUM 140 mmol/L (136-145); UREA NITROGEN 16 mg/dL (7-18); eGFR NON AFRICAN AMERICAN 68 mL/min (90-120)
[2016-11-18 13:28] LABS: CHOLESTEROL, TOTAL 164 mg/dL (0-200); CKMB 0.2 U/L (0.0-3.6); CREATINE KINASE 80 UL (21-215); HDL CHOLESTEROL 54 mg/dL (32-96); LDL CHOLESTEROL 99 mg/dL (0-100); LDL-HDL RATIO 1.8 ratio (1.5-3.5); TRIGLYCERIDE 57 mg/dL (30-200); TROPONIN-I < 0.017 ng/mL (0.000-0.060)
--- NOTE | 2016-11-18 16:11 | NUR ---
TRANSFER FROM ER BY W/C. CARINEINTED TO ROOM. CALL LIGHT IN REACH. WILL CONT. PLAN OF CARE.
[2016-11-18 16:45] VITALS: BP 179/97; BMI 43.0
[2016-11-18] MEDS ORDERED: LIPITOR80 MG PO (16:52)
[2016-11-18] MEDS ORDERED: ISOSORBIDE MONO60 M1 PO (16:52)
[2016-11-18] MEDS ORDERED: TOPROL XL50 MG PO (16:52)
[2016-11-18] MEDS ORDERED: SAVAYSA PO (16:56)
--- NOTE | 2016-11-18 19:00 | NUR ---
RECEIVED REPORT AND ASSUMED PT CARE FROM DAY SHIFT NURSE @ THIS TIME.
[2016-11-18 20:52] VITALS: BP 146/77
[2016-11-18] MEDS ORDERED: NORCO 7.5/325 T1 TA1 PO (21:35)
--- NOTE | 2016-11-18 22:30 | NUR ---
PT RESTING IN BED WITHOUT C/O OR DISTRESS NOTED. DENIES ANY C/O PAIN @ THIS TIME. REMAINS A-FLUTTER ON TELE, HR 50'S. CALL LIGHT WITHIN REACH. WILL CONT TO MONITOR.
[2016-11-19 01:06] VITALS: BP 141/76
[2016-11-19 04:00] VITALS: BP 152/94
--- NOTE | 2016-11-19 07:15 | NUR ---
PT STATES DURING BEDSIDE ROUNDING WITH ONCOMING NURSE THAT SHE FELL WHILE TRYING TO GET OOB. STATES SHE GOT TANGLED UP IN HER BEDDING AND LANDED ON THE FLOOR. GAIT STEADY. NURSING ACTUARIAL ANALYST AND DR NAVARRETE NOTIFIED OF FALL AT THIS TIME.
--- NOTE | 2016-11-19 07:42 | NUR ---
KAREN CARDENAS, PT'S SON NOTIFIED OF PT STATING SHE FELL AND THAT PT WAS NOW PLACED ON FALL PRECAUTIONS. SON VERBALIZED UNDERSTANDING.
[2016-11-19 08:00] VITALS: BP 172/88
[2016-11-19 16:00] VITALS: BP 152/94
[2016-11-19 19:00] VITALS: BP 135/78
--- NOTE | 2016-11-19 19:00 | NUR ---
RECEIVED REPORT AND ASSUMED PT CARE FROM DAY SHIFT NURSE @ THIS TIME.
[2016-11-20] VITALS: BP 143/83
[2016-11-20 04:22] VITALS: BP 137/77
[2016-11-20 08:00] VITALS: BP 190/110
--- NOTE | 2016-11-20 08:46 | NUR ---
N/V NOTED. ZOFRAN 4 MG GIVEN IVP. TELEMETRY UCAF. WILL MONITOR.
[2016-11-20 11:43] VITALS: BP 151/96
--- NOTE | 2016-11-20 12:18 | NUR ---
PATIENT STATES IS ALLERGIC TO FLU VACCINE.
--- NOTE | 2016-11-20 12:29 | NUR ---
IV AND TELEMETRY DCD. DC PLANS GIVEN. UNDERSTANDING VOICED. ESCORTED TO CAR BY W/C.
--- NOTE | 2016-11-24 13:09 | DS ---
PATIENT:ANTHONY MENDOZA :56 MEDICAL RECORD: [id number] DISCHARGE SUMMARY ADMISSION DATE: 11/18/16 DISCHARGE DATE: 11/20/16 DISCHARGE DIAGNOSES: 1. Chest pain. 2. Coronary artery disease. 3. Previous percutaneous transluminal coronary angioplasty stent. 4. Atrial fibrillation, chronic. 5. Sick sinus syndrome. 6. Hypertension. HOSPITAL COURSE: Mrs. Mendoza presents with atypical chest pain, musculoskeletal in nature, worse with a deep breath. Troponin was normal. EKG is with no changes or atrial fibrillation, which is not new with controlled rate on her current medications. She is on anticoagulation as well and discharged home with no change in her medications. Follow up with [facility] as previously scheduled. TRANSINT:[id number] Voice Confirmation ID: [id number] DOCUMENT ID: [id number] LULY DORAN MD at 1309 CC: [id number] DICTATION DATE: 11/20/16 1154 EDUCATION TECHNICIAN: 11/20/16 1300 DIS IN 11/20/[address] [address]
--- NOTE | 2016-11-30 12:49 | EC ---
PATIENT:ANTHONY MENDOZA DATE OF SERVICE: 11/18/16 SEX: F MEDICAL RECORD: [id number] DATE OF : 56 LOCATION:D. D.211 AGE OF PATIENT: 56 ADMISSION DATE: 11/18/16 REFERRING PHYSICIAN: INTERPRETING PHYSICIAN: ANAHI NAVARRETE MD ECHOCARDIOGRAM REPORT ECHO CHARGES 4 ECHO COMPLETE CLINICAL DIAGNOSIS: AFIB/CHF/CHEST PAIN ECHOCARDIOGRAPHIC MEASUREMENTS (adult normal given) AC root (d.<3.7cm) 2.9 cm LV Septum d (<1.2 cm> 1.1 cm Valve Excursion 1.6 cm LV Septum (systole) 1.4 cm Left Atria (s.<4.0cm> 4.5 cm LVPW d(<1.2cm) 1.3 cm RV (d.<2.3cm) 4.0 cm LVPW (sytole) 1.4 cm LV diastole(<5.6CM) 5.3 cm MV E-F(>70mm/sec) cm LV systole 4.0 cm LVOT Diameter 1.8 cm MV exc.(>10mm) 2.3 cm Est.ejection fraction (50-75%) % Pericardial Effusion N DOPPLER: LVIT cm/sec A 37.0 cm/sec E 108 cm/sec LA cm/sec RVSP 46 mmHg LVOT 95 cm/sec AOP1/2T m/s Asc. Ao 145 cm/sec RVOT 64 cm/sec RA cm/sec PA 93 cm/sec AV Gradient Peak 8.38 mmHg AV Mean 4.25 mmHg AV Area 1.5 cm MV Gradient Peak 6.19 mmHg MV Mean 2.53 mmHg MV Area cm COMMENTS: Veterinary Assistant Technician: 2 JUANCARLOS THAKKAR Land Management Supervisor: 4 Dr. Navarrete TAPE# PACS DATE OF SERVICE: 11/19/2016 PROCEDURE: Transthoracic echocardiogram. FINDINGS: 1. The left ventricle is on the upper limits of normal in size. There appears to be mild concentric left ventricular hypertrophy and low normal ejection fraction 45% to 50% without any demonstrated regional wall motion abnormalities. 2. The mitral valve appears to be structurally normal with mild mitral regurgitation. ECHOCARDIOGRAM REPORT [id number] ANTHONY MENDOZA 3. The tricuspid valves shows mild to moderate tricuspid regurgitation with mild elevations in right ventricular systolic pressures of 40-45 mmHg. 4. The pericardium is grossly normal without demonstrated pericardial effusion. 5. The right ventricle is mild to moderately enlarged with normal function with right ventricular hypertrophy. 6. The right atrium is mild to moderately enlarged with normal function. 7. The pulmonic valve has trace pulmonic insufficiency. CONCLUSIONS: The patient has evidence of hypertensive heart disease with low normal ejection fraction and evidence of mild pulmonary hypertension. TRANSINT:[id number] Voice Confirmation ID: [id number] DOCUMENT ID: [id number] 11/28/2016 Edited to correct date of service, dm. ANAHI NAVARRETE MD at 1249 CC: [id number] DICTATION DATE: 11/20/16 0705 CREW SCHEDULER: 11/20/16 1046 DIS IN 11/20/16 [id number] [place] [address]
[2017-03-25] MEDS ORDERED: ELIQUIS2.5 MG PO (11:37)
== END 2016-11-20 12:32 | disposition home or self-care (01) ==
LOC: D.ER 11:27 → D.M2 15:11 → OBSVTIME 15:11 → D.M2 11-20 12:32
PROVIDERS: Emergency Medicine; ADMIT Internal Medicine Cardiovascular Disease
DX: R07.89 Other chest pain (principal); I25.10 Atherosclerotic heart disease of native coronary artery without angina pectoris; Z95.5 Presence of coronary angioplasty implant and graft; I48.2 Chronic atrial fibrillation; Z79.01 Long term (current) use of anticoagulants; I49.5 Sick sinus syndrome; I10 Essential (primary) hypertension; Z86.73 Personal history of transient ischemic attack (TIA), and cerebral infarction without residual deficits; Z72.0 Tobacco use

== ENCOUNTER 2016-12-01 15:18 | Emergency (ER) | payer MEDICARE ==
[~2016-12-01 15:18] MED LIST changes: +ISOSORBIDE MONO60 M1 PO; +LIPITOR80 MG PO; +NORCO 7.5/325 T1 TA1 PO; +SAVAYSA PO; +TOPROL XL50 MG PO
[2016-12-01 17:50] LABS: INR 1.44 (0.85-1.17); PROTIME 17.4 SECONDS (11.6-15.0)
[2016-12-01 17:52] LABS: ALBUMIN 3.3 g/dL (3.4-5.0); ALKALINE PHOSPHATASE 196 U/L (46-116); ALT (SGPT) 24 U/L (10-68); BILIRUBIN - TOTAL 0.25 mg/dL (0.2-1.3); CALC OSMOLALITY 276 mosm/kg (275-300); CALCIUM 9.5 mg/dL (8.5-10.1); CARBON DIOXIDE 25.7 mmol/L (21.0-32.0); CHLORIDE - SERUM 103 mmol/L (98-107); CREATININE - SERUM 1.1 mg/dL (0.6-1.3); GLUCOSE 88 mg/dL (74-106); POTASSIUM - SERUM 4.1 mmol/L (3.5-5.1); SODIUM 138 mmol/L (136-145); UREA NITROGEN 18 mg/dL (7-18); eGFR NON AFRICAN AMERICAN 54 mL/min (90-120)
[2016-12-01 17:54] LABS: BASOPHILS 0.2 % (0-2); EOSINOPHILS 0.6 % (0-7); HEMATOCRIT 43.8 % (36.0-48.0); HEMOGLOBIN 13.9 g/dL (12-16); LYMPHOCYTES 42.4 % (15-50); MCH 25.3 pg (26.0-34.0); MCHC 31.7 g/dL (31.0-37.0); MCV 79.8 fL (80.0-100.0); NEUTROPHILS 50.8 % (40-80); PLATELET COUNT 258 10x3/uL (130-400); RBC 5.49 10x6/uL (4.00-5.40); RDW 17.9 % (11.5-14.5); WBC 6.2 10x3/uL (4.8-10.8)
[2016-12-01 18:01] LABS: AMYLASE - SERUM 100 U/L (25-115); CREATINE KINASE 109 UL (21-215); LIPASE 130 U/L (73-393); PRO BNP 1280 pg/mL (0-125)
[2016-12-01 18:07] LABS: APPEARANCE CLEAR (CLEAR); BILIRUBIN NEGATIVE (NEGATIVE); COLOR YELLOW (YELLOW); GLUCOSE NEGATIVE (NEGATIVE); KETONE NEGATIVE (NEGATIVE); NITRITE NEGATIVE (NEGATIVE); PROTEIN NEGATIVE (NEGATIVE); SPECIFIC GRAVITY 1.025 (1.005-1.020); UROBILINOGEN NORMAL (NORMAL)
[2016-12-01 18:09] LABS: BACTERIA FEW /hpf (NONE SEEN); RED CELLS - URINE 0-5 /hpf (0-5); WHITE CELLS - URINE OCC /hpf (0-5)
[2016-12-01 18:11] LABS: TROPONIN-I < 0.017 ng/mL (0.000-0.060)
[2017-03-25] MEDS ORDERED: ELIQUIS2.5 MG PO (11:37)
== END 2016-12-01 19:51 | disposition home or self-care (01) ==
LOC: D.ER 15:18
PROVIDERS: Nurse Practitioner Family
DX: I10 Essential (primary) hypertension (principal); I50.9 Heart failure, unspecified; I48.92 Unspecified atrial flutter; I44.30 Unspecified atrioventricular block

== ENCOUNTER 2017-01-29 13:54 | Emergency (ER) | payer MEDICARE ==
[2017-01-29 14:53] LABS: BASOPHILS 0.2 % (0-2); HEMOGLOBIN 13.2 g/dL (12-16); IMMATURE GRANULOCYTES 0.2 % (0-5); LYMPHOCYTES 40.1 % (15-50); MCH 26.5 pg (26.0-34.0); MCHC 32.2 g/dL (31.0-37.0); MCV 82.3 fL (80.0-100.0); MEAN PLATELET VOLUME 11.3 fL (7.4-10.4); MONOCYTES 5.3 % (2-11); NEUTROPHILS 53.2 % (40-80); PLATELET COUNT 285 10x3/uL (130-400); RBC 4.98 10x6/uL (4.00-5.40); RDW 17.3 % (11.5-14.5); WBC 8.4 10x3/uL (4.8-10.8)
[2017-01-29 15:00] LABS: APPEARANCE CLEAR (CLEAR); BILIRUBIN NEGATIVE (NEGATIVE); COLOR YELLOW (YELLOW); GLUCOSE NEGATIVE (NEGATIVE); KETONE NEGATIVE (NEGATIVE); NITRITE NEGATIVE (NEGATIVE); PROTEIN NEGATIVE (NEGATIVE); SPECIFIC GRAVITY 1.015 (1.005-1.020); UROBILINOGEN NORMAL (NORMAL)
[2017-01-29 15:09] LABS: ALBUMIN 2.9 g/dL (3.4-5.0); ALKALINE PHOSPHATASE 153 U/L (46-116); ALT (SGPT) 27 U/L (10-68); BILIRUBIN - TOTAL 0.32 mg/dL (0.2-1.3); CALC OSMOLALITY 285 mosm/kg (275-300); CALCIUM 9.5 mg/dL (8.5-10.1); CARBON DIOXIDE 27.4 mmol/L (21.0-32.0); CHLORIDE - SERUM 102 mmol/L (98-107); CREATININE - SERUM 1.4 mg/dL (0.6-1.3); GLUCOSE 95 mg/dL (74-106); POTASSIUM - SERUM 3.9 mmol/L (3.5-5.1); PROTEIN - SERUM 8.2 g/dL (6.4-8.2); SODIUM 139 mmol/L (136-145); UREA NITROGEN 34 mg/dL (7-18); eGFR NON AFRICAN AMERICAN 41 mL/min (90-120)
[2017-01-29 15:13] LABS: UDS - AMPHET NEGATIVE QUAL (NEGATIVE); UDS - BARB NEGATIVE QUAL (NEGATIVE); UDS - BENZO NEGATIVE QUAL (NEGATIVE); UDS - COCAINE NEGATIVE QUAL (NEGATIVE); UDS - OPIATE NEGATIVE QUAL (NEGATIVE); UDS - PCP NEGATIVE QUAL (NEGATIVE); UDS - THC NEGATIVE QUAL (NEGATIVE)
[2017-01-29 15:20] LABS: CKMB 0.6 U/L (0.0-3.6); CREATINE KINASE 88 UL (21-215); MAGNESIUM - SERUM 2.2 mg/dL (1.8-2.4)
[2017-01-29 15:21] LABS: TROPONIN-I < 0.017 ng/mL (0.000-0.060)
[2017-03-25] MEDS ORDERED: ELIQUIS2.5 MG PO (11:37)
== END 2017-01-29 17:45 | disposition home or self-care (01) ==
LOC: D.ER 13:54
PROVIDERS: Family Medicine
DX: J01.90 Acute sinusitis, unspecified (principal); I48.2 Chronic atrial fibrillation; I10 Essential (primary) hypertension; I44.30 Unspecified atrioventricular block

== ENCOUNTER 2017-06-07 20:31 | Observation (INO) | payer MEDICARE ==
[~2017-06-07] VITALS: Ht 162.6 cm; Wt 121.6 kg
[2017-06-07 21:24] LABS: BASOPHILS 0.2 % (0-2); EOSINOPHILS 0.8 % (0-7); HEMATOCRIT 35.8 % (36.0-48.0); HEMOGLOBIN 11.2 g/dL (12-16); IMMATURE GRANULOCYTES 0.2 % (0-5); LYMPHOCYTES 43.5 % (15-50); MCH 25.8 pg (26.0-34.0); MCHC 31.3 g/dL (31.0-37.0); MCV 82.5 fL (80.0-100.0); MEAN PLATELET VOLUME 11.3 fL (7.4-10.4); MONOCYTES 7.2 % (2-11); NEUTROPHILS 48.1 % (40-80); PLATELET COUNT 265 10x3/uL (130-400); RBC 4.34 10x6/uL (4.00-5.40); RDW 15.3 % (11.5-14.5); WBC 8.7 10x3/uL (4.8-10.8)
[2017-06-07 22:17] LABS: ALBUMIN 2.8 g/dL (3.4-5.0); ANION GAP 12.6 mmol/L (8-16); BILIRUBIN - TOTAL 0.2 mg/dL (0.2-1.3); CALCIUM 8.7 mg/dL (8.5-10.1); POTASSIUM - SERUM 3.6 mmol/L (3.5-5.1); PROTEIN - SERUM 6.8 g/dL (6.4-8.2)
[2017-06-07 22:35] LABS: TROPONIN-I 0.245 ng/mL (0.000-0.060)
[2017-06-08 01:27] VITALS: BP 168/83; BMI 44.7
[2017-06-08 03:15] LABS: CKMB 0.6 U/L (0.0-3.6); CREATINE KINASE 88 UL (21-215)
[2017-06-08 03:16] LABS: TROPONIN-I 0.251 ng/mL (0.000-0.060)
[2017-06-08 04:30] VITALS: BP 141/86
[2017-06-08 08:16] VITALS: BP 170/99
[2017-06-08 09:50] LABS: HEMATOCRIT 40.8 % (36.0-48.0); HEMOGLOBIN 12.7 g/dL (12-16); MCHC 31.1 g/dL (31.0-37.0); MCV 83.6 fL (80.0-100.0); MEAN PLATELET VOLUME 11.5 fL (7.4-10.4); PLATELET COUNT 283 10x3/uL (130-400); RBC 4.88 10x6/uL (4.00-5.40); RDW 15.5 % (11.5-14.5); WBC 6.9 10x3/uL (4.8-10.8)
[2017-06-08 10:17] LABS: CALC OSMOLALITY 286 mosm/kg (275-300); CALCIUM 9.1 mg/dL (8.5-10.1); CHLORIDE - SERUM 105 mmol/L (98-107); CKMB 0.9 U/L (0.0-3.6); CREATINE KINASE 106 UL (21-215); GLUCOSE 99 mg/dL (74-106); POTASSIUM - SERUM 3.7 mmol/L (3.5-5.1); SODIUM 142 mmol/L (136-145); UREA NITROGEN 24 mg/dL (7-18); eGFR NON AFRICAN AMERICAN 60 mL/min (90-120)
[2017-06-08 10:20] LABS: TROPONIN-I 0.217 ng/mL (0.000-0.060)
[2017-06-08 10:21] LABS: EOSINOPHILS 1 % (0-7); LYMPHOCYTES 47 % (15-50); MONOCYTES 4 % (2-11); NEUTROPHILS 48 % (40-80); PLATELET ESTIMATE NORMAL
[2017-06-08 10:38] VITALS: Ht 162.6 cm; Wt 121.6 kg
[2017-06-08 11:23] VITALS: BP 143/85
== END 2017-06-08 14:56 | disposition home or self-care (01) ==
LOC: D.ER 20:31 → D.EDHOLD 23:02 → OBSVTIME 23:02 → D.M2 23:34
PROVIDERS: Emergency Medicine; Internal Medicine Cardiovascular Disease
DX: I25.110 Atherosclerotic heart disease of native coronary artery with unstable angina pectoris (principal); Z95.5 Presence of coronary angioplasty implant and graft; Z86.73 Personal history of transient ischemic attack (TIA), and cerebral infarction without residual deficits; I10 Essential (primary) hypertension; M19.90 Unspecified osteoarthritis, unspecified site; I48.91 Unspecified atrial fibrillation; Z72.0 Tobacco use

== ENCOUNTER 2017-06-17 12:48 | Emergency (ER) | payer MEDICARE ==
[2017-06-08 10:38] VITALS: BMI 46.0
== END 2017-06-17 15:00 | disposition home or self-care (01) ==
LOC: D.ER 12:48
DX: M25.562 Pain in left knee (principal); M25.561 Pain in right knee; K21.9 Gastro-esophageal reflux disease without esophagitis; I10 Essential (primary) hypertension

== ENCOUNTER 2017-07-05 13:15 | Emergency (ER) | payer MEDICARE ==
[2017-06-08 10:38] VITALS: BMI 46.0
[2017-07-05 14:10] LABS: BASOPHILS 0.3 % (0-2); EOSINOPHILS 0.6 % (0-7); HEMATOCRIT 39.1 % (36.0-48.0); HEMOGLOBIN 12.6 g/dL (12-16); IMMATURE GRANULOCYTES 0.1 % (0-5); LYMPHOCYTES 33.5 % (15-50); MCH 25.6 pg (26.0-34.0); MCHC 32.2 g/dL (31.0-37.0); MCV 79.5 fL (80.0-100.0); MEAN PLATELET VOLUME 12.2 fL (7.4-10.4); MONOCYTES 8.7 % (2-11); NEUTROPHILS 56.8 % (40-80); PLATELET COUNT 294 10x3/uL (130-400); RBC 4.92 10x6/uL (4.00-5.40); RDW 16.4 % (11.5-14.5); WBC 7.7 10x3/uL (4.8-10.8)
[2017-07-05 14:26] LABS: ALBUMIN 2.9 g/dL (3.4-5.0); ALKALINE PHOSPHATASE 158 U/L (46-116); ALT (SGPT) 23 U/L (10-68); CALC OSMOLALITY 289 mosm/kg (275-300); CALCIUM 9.1 mg/dL (8.5-10.1); CARBON DIOXIDE 28.5 mmol/L (21.0-32.0); CHLORIDE - SERUM 107 mmol/L (98-107); CREATININE - SERUM 0.9 mg/dL (0.6-1.3); GLUCOSE 108 mg/dL (74-106); POTASSIUM - SERUM 3.6 mmol/L (3.5-5.1); PROTEIN - SERUM 7.4 g/dL (6.4-8.2); SODIUM 144 mmol/L (136-145); UREA NITROGEN 17 mg/dL (7-18); eGFR NON AFRICAN AMERICAN 68 mL/min (90-120)
[2017-07-05 14:36] LABS: CHOL - HDL RATIO 3.5 ratio (2.3-4.1); CHOLESTEROL, TOTAL 168 mg/dL (0-200); CKMB 0.4 U/L (0.0-3.6); CREATINE KINASE 74 UL (21-215); HDL CHOLESTEROL 48 mg/dL (32-96); LDL CHOLESTEROL 105 mg/dL (0-100); LDL-HDL RATIO 2.2 ratio (1.5-3.5); TRIGLYCERIDE 75 mg/dL (30-200); TROPONIN-I < 0.017 ng/mL (0.000-0.060)
== END 2017-07-05 16:35 | disposition home or self-care (01) ==
LOC: D.ER 13:15
PROVIDERS: Emergency Medicine
DX: R07.9 Chest pain, unspecified (principal); I25.10 Atherosclerotic heart disease of native coronary artery without angina pectoris; I48.92 Unspecified atrial flutter; I10 Essential (primary) hypertension; K21.9 Gastro-esophageal reflux disease without esophagitis; F17.200 Nicotine dependence, unspecified, uncomplicated; I44.0 Atrioventricular block, first degree; I49.3 Ventricular premature depolarization

== ENCOUNTER 2017-09-16 14:16 | Emergency (ER) | payer MEDICARE ==
[~2017-09-16] VITALS: Ht 162.6 cm; Wt 104.5 kg
[2017-09-16 14:41] VITALS: Ht 162.6 cm; Wt 104.5 kg
[2017-09-16 15:05] LABS: BASOPHILS 0.2 % (0-2); EOSINOPHILS 0.7 % (0-7); HEMATOCRIT 39.2 % (36.0-48.0); HEMOGLOBIN 12.4 g/dL (12-16); IMMATURE GRANULOCYTES 0.1 % (0-5); MCH 25.7 pg (26.0-34.0); MCHC 31.6 g/dL (31.0-37.0); MCV 81.2 fL (80.0-100.0); MEAN PLATELET VOLUME 11.8 fL (7.4-10.4); MONOCYTES 8.1 % (2-11); NEUTROPHILS 45.9 % (40-80); PLATELET COUNT 276 10x3/uL (130-400); RBC 4.83 10x6/uL (4.00-5.40); RDW 17.6 % (11.5-14.5); WBC 8.5 10x3/uL (4.8-10.8)
[2017-09-16] MEDS ORDERED: CATAPRES0.1 MG PO (15:27)
[2017-09-16] MEDS ORDERED: HYDRALAZINE HCL50 MG PO (15:27)
[2017-09-16 15:37] LABS: ALBUMIN 2.9 g/dL (3.4-5.0); ALKALINE PHOSPHATASE 144 U/L (46-116); ALT (SGPT) 19 U/L (10-68); BILIRUBIN - TOTAL 0.26 mg/dL (0.2-1.3); CALC OSMOLALITY 278 mosm/kg (275-300); CALCIUM 8.7 mg/dL (8.5-10.1); CARBON DIOXIDE 32.9 mmol/L (21.0-32.0); CHLORIDE - SERUM 102 mmol/L (98-107); GLUCOSE 87 mg/dL (74-106); POTASSIUM - SERUM 3.3 mmol/L (3.5-5.1); PROTEIN - SERUM 7.1 g/dL (6.4-8.2); SODIUM 139 mmol/L (136-145); UREA NITROGEN 19 mg/dL (7-18); eGFR NON AFRICAN AMERICAN 60 mL/min (90-120)
[2017-09-16 15:50] LABS: CKMB 0.4 U/L (0.0-3.6); CREATINE KINASE 82 UL (21-215); PRO BNP 1584 pg/mL (0-125); THYROID STIMULATING HORMONE 2.74 uIU/mL (0.36-3.74)
[2017-09-16 15:53] LABS: TROPONIN-I < 0.017 ng/mL (0.000-0.060)
[2017-09-16 16:48] VITALS: BP 145/77
== END 2017-09-16 16:51 | disposition home or self-care (01) ==
LOC: D.ER 14:16
PROVIDERS: Emergency Medicine
DX: I10 Essential (primary) hypertension (principal); I48.92 Unspecified atrial flutter; I25.118 Atherosclerotic heart disease of native coronary artery with other forms of angina pectoris; R51 Headache; R05 Cough; R09.89 Other specified symptoms and signs involving the circulatory and respiratory systems; Z86.73 Personal history of transient ischemic attack (TIA), and cerebral infarction without residual deficits; I73.9 Peripheral vascular disease, unspecified; F17.200 Nicotine dependence, unspecified, uncomplicated; I44.30 Unspecified atrioventricular block; I49.3 Ventricular premature depolarization

== ENCOUNTER → 2017-10-18 22:28 | Outpatient (CLI) | payer MEDICARE ==
[2017-09-16 14:41] VITALS: BMI 39.5
== END | disposition home or self-care (01) ==
LOC: D.MAMMO 15:30
DX: Z12.31 Encounter for screening mammogram for malignant neoplasm of breast (principal)

== ENCOUNTER 2018-01-02 07:46 | Outpatient (CLI) | payer MEDICARE ==
[~2018-01-02] VITALS: Ht 162.6 cm; Wt 113.6 kg
--- NOTE | ~2018-01-02 | OP ---
PATIENT NAME: ANTHONY MENDOZA MEDICAL RECORD: [id number] :56 LOCATION:D.CAT ADMISSION DATE: SURGEON: LULY DORAN MD DATE OF OPERATION: 01/02/2018 PROCEDURES: 1. PTCA left circumflex. 2. PTCA ramus intermedius. 3. Intravascular ultrasound of the LAD. 4. Intravascular ultrasound of left circumflex. 5. Left heart catheterization. 6. Selective coronary angiography. 7. Left ventriculogram. INDICATION: Angina and coronary artery disease. PROCEDURE PERFORMED: After informed consent was obtained and after a detailed description of risks, benefits as well as alternative therapies, the patient elected to proceed with angiogram and angioplasty. The right femoral area was prepped and draped in normal sterile fashion. Right femoral artery was cannulated via modified Seldinger technique with placement of 6-Chadian sheath. All catheters exchanged through this sheath. FINDINGS: Left ventriculogram was performed in standard 30-degree SOSA view, reveals good cardiac wall motion throughout all segments. Overall ejection fraction estimated 60%. SELECTIVE CORONARY ANGIOGRAPHY: 1. Left main is with no significant angiographic disease. 2. Left anterior descending has a previously placed stent. Intravascular ultrasound reveals that there is no significant in-stent restenosis. No disease elsewise throughout the LAD or its branches. 3. The left circumflex has previously placed stents in the circumflex and ramus intermedius. The ramus has 85% in-stent restenosis. Intravascular ultrasound reveals that there is 70% in-stent restenosis of the circumflex. 4. Right coronary artery has moderate irregularities, but no flow-limiting stenosis. PTCA OF THE RAMUS INTERMEDIUS AND CIRCUMFLEX: High pressure PTCA was made with a 2.5 balloon and 4.0 balloon. Result was 0% residual. IMPRESSION: Successful percutaneous transluminal coronary angioplasty for in-stent restenosis of the ramus intermedius and circumflex going from 70% to 85% initial stenosis to 0% residual. TRANSINT:[id number] Voice Confirmation ID: [id number] DOCUMENT ID: [id number] OPERATIVE REPORT [id number] ANTHONY MENDOZA JEFFREY MD at 1138 CC: [id number] DICTATION DATE: 01/02/18 1049 CARDIOTHORACIC SURGEON: 01/02/18 1104 [facility] [address] [place] [address]
--- NOTE | ~2018-01-02 | HEMODYNAMI ---
PATIENT:ANTHONY MENDOZA MEDICAL RECORD: [id number] : 56 LOCATION:[facility] ADMISSION DATE: 01/02/18 Generatedon:01/02/201810:50 Patient name: ANTHONY MENDOZA Patient #: [id number] SSN: D OB: 1960 Date of study: 01/02/2018 Page: Of Hemodynamic Procedure Report Patient Data Patient Demographics Procedure consent was obtained First Name: ANTHONY Gender: Female Last Name: REJI : 1960 [facility] Initial: ESTER Age: 57 year(s) Patient #: [id number] Race: Black Additional ID: [id number] Contact details Address: [address] [place] [address] 2 State: [place] City: [facility] Zip code: [address] Past Medical History History of disease Date Diagnosis Comments CAD Allergies Allergen Reaction Date Comments Reported Other allergy 02/06/2014 Amiodarone, Benazepril, Flu Shot, Lactulose Other allergy 05/25/2014 Milk Other allergy 05/25/2014 Flu vaccine Other allergy 05/25/2014 Loenazepril Other allergy 01/02/2018 AMIODARONE, BENZEPRIL, Admission Admission Data Admission Date: 01/02/2018 Admission Time: 7:46 Height (in.): 64 BSA: 2.19 (m2) Height (cm.): 162.56 BMI: 44.8 (kg/m2) Weight (lbs.): 261 Weight (kg.): 118.39 Lab Results Lab Result Date: 01/02/2018 Lab Result Time: 0:00 Biochemistry Name Units Result Min Max BUN mg/dl 19 --(----)*- 7 18 Creatinine mg/dl 1 --(--*-)-- 0.6 1.3 CBC Name Units Result Min Max Hemoglobin g/dl 13.4 -*(----)-- 13.5 17.5 Procedure Procedure Types Cath Procedure Diagnostic Procedure LHC LHC w/Coronaries FFR/IVUS Intra-Coronary IVUS Initial Intra-Coronary IVUS Additional Sedation Charges Moderate Sedation up to 15 minutes PCI Procedure PTCA PTCA Initial x2 Procedure Description Procedure Date Procedure Date: 01/02/2018 Procedure Start Time: 10:28 Procedure End Time: 10:49 Procedure Staff Name Function Dax Reynoso MD Performing Physician Lyric Reddy RT Monitor Zurdo Gonzalez RT Scrub Kristin Paulino RN Nurse Procedure Data Cath Procedure Fluoroscopy Diagnostic fluoroscopy Total fluoroscopy Time: 6.9 time: 6.9 min min Diagnostic fluoroscopy Total fluoroscopy dose: dose: 1274 mGy 1274 mGy Contrast Material Contrast Material Type Amount (ml) Isovue 300 81 Entry Location Entry Primary Successful Side Size Upsize Upsize Entry Closure Succes sful Closure Location (Fr) 1 (Fr) 2 (Fr) Remarks Device Remarks Femoral Right 5 Fr 6 Fr Exoseal artery Short Estimated blood loss: 10 ml Diagnostic catheters Device Type Used For End Catheter Placement MULTIPACK Pigtail 5 Fr Procedure catheter MULTIPACK JL 4.0 5Fr Procedure catheter MULTIPACK 3DRC 5Fr Procedure catheter Procedure Complications No complications Procedure Medications Medication Administration Route Dosage 0.9% NaCl I.V. 100 ml/hr Oxygen etCO2 Nasal cannula 2 l/min Lidocaine 2% added to field 20 Heparin Flush Bag added to field 2 bags (1000units/500ml NS) Versed I.V. 2 mg Fentanyl I.V. 50 mcg Versed I.V. 1 mg Heparin Bolus I.V. 4000 units Integrilin (Bolus I.V. 10.2 ml 2mg/ml) Plavix P.O. 600 mg Hemodynamics Rest BSA: 2.19 (m2) HGB: 13.4 (g/dl) O2 Consumption: Estimated: 225.03 (ml/min) O2 Co nsumption indexed: Estimated:102.75 (ml/min/m) Heart Rate: 90 (bpm) Snapshots Pre Cath Intra NCS Post Cath Vital Signs Time Heart Resp SPO2 etCO2 NIBP (mmHg) Rhythm Pain Sedation Rate (ipm) (%) (mmHg) Status Level (bpm) 10:09:16 81 12 99 14 158/109(136) NSR 0 (11) 10(A) , No pain 10:13:56 76 19 97 13.6 161/98(139) NSR 0 (11) 10(A) , No pain 10:18:33 79 15 100 14 144/97(131) NSR 0 (11) 10(A) , No pain 10:22:59 75 14 100 13.6 146/95(133) NSR 0 (11) 10(A) , No pain 10:27:33 79 16 100 14 151/91(117) NSR 0 (11) 10(A) , No pain 10:32:10 64 16 100 3.8 164/98(118) NSR 0 (11) 10(A) , No pain 10:36:53 74 16 100 12.9 155/109(145) NSR 0 (11) 10(A) , No pain 10:41:31 79 16 100 15.9 176/117(146) NSR 0 (11) 10(A) , No pain 10:46:18 78 15 100 15.2 159/108(127) NSR 0 (11) 10(A) , No pain Medications Time Medication Route Dose Verified Delivered Reason Notes Effectiveness by by 10:07:50 0.9% NaCl I.V. 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 2 mg Dax Kristin for sedation Edgardo Paulino RN 10:22:37 Fentanyl I.V. 50 Dax Kristin for sedation mcg Edgardo Paulino RN 10:27:14 Versed I.V. 1 mg Dax Kristin for sedation Edgardo Paulino RN 10:39:11 Heparin Bolus I.V. 4000 Dax Kristin for verif ied units Edgardo Paulino anticoagulation with Dr. NYLA Pal 10:41:28 Integrilin I.V. 10.2 Dax Kristin for (Bolus 2mg/ml) ml Edgardo Paulino anticoagulation RN 10:45:24 Plavix P.O. 600 Dax Kristinmalena Paulino antiplatelet RN therapy Procedure Log Time Note 9:31:50 Signed procedure consent form obtained from patient. 9:31:51 Diagnostic Cath status Elective 9:32:02 Patient Height : 64 inches 9:32:05 Patient Weight : 261 lbs 9:32:14 H&P Date Dictated: 12/31/2017 Within 30 days and on chart., H&P Addendum completed by physician on day of procedure. (MUST COMPLETE FOR ALL OUTPATIENTS). 9:32:41 Patient allergic to Other allergyAMIODARONE, BENZEPRIL, 9:46:11 Zurdo Gonzalez RT(R) sent for patient. Start room use. 9:46:12 Time tracking: Regular hours (M-F 7:00 - 5:00) 9:46:16 Plan of Care:Hemodynamics will remain stable., Cardiac rhythm will remain stable., Comfort level will be maintained., Respiratory function will remain adequate., Patient/ family verbilizes understanding of procedure., Procedure tolerated without complication., Recovers from procedure without complications.. 9:46:46 Lab Result : Creatinine 1 mg/dl 9:46:46 Lab Result : BUN 19 mg/dl 9:46:46 Lab Result : Hemoglobin 13.4 g/dl 10:00:42 Patient received from Pre/Post Procedure Room to CCL 1 Alert and oriented. Tansferred to table in Supine position. 10:00:43 Warm blankets applied, and ja hugger turned on for patient comfort. 10:00:43 Correct patient and procedure confirmed by team. 10:00:44 ECG and BP/O2 sat monitors applied to patient. 10:07:39 Vital chart was started 10:07:50 0.9% NaCl 100 ml/hr I.V. was administered by Kristin Paulino RN; used for procedure; 10:07:57 Oxygen 2 l/min etCO2 Nasal cannula was administered by Kristin Paulino RN; used for procedure; 10:08:03 Lidocaine 2% 20ml vial added to field was administered by Dax Reynoso MD; for local anesthetic; 10:08:12 Heparin Flush Bag (1000units/500ml NS) 2 bags added to field was administered by Dax Reynoso MD; used for procedure; 10:15:29 Baseline sample Acquired. 10:15:35 Rhythm: atrial flutter 10:15:37 Full Disclosure recording started 10:15:38 Pre-procedure instructions explained to patient. 10:15:38 Pre-op teaching completed and patient verbalized understanding. 10:15:39 Family in patients room. 10:15:41 Patient NPO since Midnight. 10:15:42 Is the patient allergic to Iodine/contrast media? No. 10:15:43 Is patient on blood thinner?Yes 10:15:55 ELIQUIS HELD SINCE 11.10 10:15:57 Patient diabetic? No. 10:16:00 Patient not . Patient is over age 55. 10:16:02 Previous problem with sedation/anesthesia? No ? 10:16:03 Snore? No 10:16:04 Sleep apnea? No 10:16:05 Deviated septum? No 10:16:05 Opens mouth fully? Yes 10:16:06 Sticks out tongue? Yes 10:16:08 Airway obstruction? No ? 10:16:09 Dentures? No ? 10:16:11 Pre procedure: right dorsailis pedis pulse 2+ Normal; easily identifiable; not easily obliterated 10:16:16 Patient pain scale 0/10 ?. 10:16:20 IV patent on arrival in right hand with 0.9% NaCl at [facility]. 10:16:22 Lab results completed and on chart. 10:16:24 Right groin area was prepped with chlora-prep and draped in sterile fashion 10:16:25 Alarms reviewed by R. N. 10:16:25 Sharps counted by scrub and verified by R.N. 10:16:28 Use device set Femoral Dx 10:16:29 ACIST Syringe (52824) opened to sterile field. 10:16:29 Bag Decanter () opened to sterile field. 10:16:31 ACIST Hand Control (86329) opened to sterile field. 10:16:31 ACIST Manifold (95200) opened to sterile field. 10:16:34 Tegaderm 4 x 4 (1626W) opened to sterile field. 10:16:35 Medline Cath Pack ([id number]) opened to sterile field. 10:16:36 DIAGNOSTIC WIRE .035 260cm J wire (041097) opened to sterile field. 10:16:37 DIAGNOSTIC Multipack 5Fr catheter set (TL7605) opened to sterile field. 10:16:43 SHEATH 6FR [place] (QWL882) opened to sterile field. 10::44 --------ALL STOP TIME OUT------ 10::45 Final Timeout: patient, procedure, and site verified with staff and physician. All members of the team are in agreement. 10:21:48 Right groin site verified by team. 10::50 Physical assessment completed. ASA score P 2 - A patient with mild systemic disease as per Dax Reynoso MD. 10::53 Sedation plan: IV Moderate Sedation Medication:Versed, Fentanyl 10:22:30 Versed 2 mg I.V. was administered by Kristin Paulino RN; for sedation; 10::37 Fentanyl 50 mcg I.V. was administered by Kristin Paulino RN; for sedation; ::45 Zero performed for pressure channel P1 10:27:14 Versed 1 mg I.V. was administered by Kristin Paulino RN; for sedation; 10:27:39 Procedure started. 10:28:08 Local anesthetic to right femoral artery with Lidocaine 2% by Dax Reynoso MD.INITIAL ACCESS ONLY 10:28:48 A 5 Fr sheath was inserted into the Right Femoral artery 10::58 A MULTIPACK Pigtail 5 Fr catheter was advanced over the wire and used for Procedure. 10:29:11 LV gram done using SOSA 10:29:14 Injector settings: Ml/sec: 10, Volume: 20, 10:29:42 EF : 45 % 10:29:44 Catheter removed. 10:29:51 A MULTIPACK JL 4.0 5Fr catheter was advanced over the wire and used for Procedure. 10:30:30 LCA angiography performed. 10:31:18 Catheter removed. 10:31:24 A MULTIPACK 3DRC 5Fr catheter was advanced over the wire and used for Procedure. 10:31:54 RCA angiography performed. 10:31:55 Catheter removed. 10:32:03 SHEATH 6FR [place] (GRR512) opened to sterile field. 10:32:08 INFLATOR Merit BasixCompak (YM0275) opened to sterile field. 10:32:23 CHOICE PT Extra Support 182cm wire ([id number]) opened to sterile field. 10:32:29 GUIDE 6FR XBLAD 3.5 catheter ([id number]) opened to sterile field. 10:32:38 [place] IVUS Catheter (31511A) opened to sterile field. 10:32:46 Sheath upsized to a 6 Fr Short. 10:32:53 5 Fr ? guide catheter was inserted over the wire 10:32:57 6 Fr XBLAD 3. 5 guide catheter was inserted over the wire 10:33:42 CHOICE ES 182 wire advanced. 10:33:58 Wire advanced across lesion. 10:34:03 IVUS catheter advanced over wire. 10:35:15 IVUS pass to Circ lesion performed. 10:35:17 IVUS catheter removed over wire. 10:35:23 Wire redirected to LAD. 10:35:26 IVUS catheter advanced over wire. 10:35:28 IVUS pass to LAD lesion performed. 10:35:47 IVUS catheter removed over wire. 10:36:07 Wire redirected to RAMUS. 10:39:11 Heparin Bolus 4000 units I.V. was administered by Kristin Paulino RN; for anticoagulation; verified with Dr. Reynoso 10:40:13 Inflate balloon Inflation number: 1 A EUPHORA 1.5 x 12 balloon ([id number]) was prepped and advanced across the Ramus, then inflated to 21 ARCHANA for 0:10 (min:sec). 10:41:28 Integrilin (Bolus 2mg/ml) 10.2 ml I.V. was administered by Kristin Paulino RN; for anticoagulation; 10:42:12 Inflate balloon Inflation number: 2 A EUPHORA 2.5 x 15 Balloon ([id number]) was prepped and advanced across the Ramus, then inflated to 21 ARCHANA for 0:10 (min:sec). 10:42:36 Balloon removed over the wire. 10:42:40 Wire redirected to CIRC. 10:44:01 Inflate balloon Inflation number: 1 A EUPHORA 4.0 x 15 Balloon ([id number]) was prepped and advanced across the Prox CX, then inflated to 17 ARCHANA for 0:10 (min:sec). 10:44:10 Inflation number: 2 The EUPHORA 4.0 x 15 Balloon ([id number]) was reinflated across the Prox CX, to 17 ARCHANA for 0:10 (min:sec). 10:44:19 Balloon removed over the wire. 10:44:19 Wire removed. 10:44:20 Guide catheter removed. 10:44:34 EXOSEAL 6Fr (EX600) opened to sterile field. 10:44:47 Sheath removed intact; hemostasis achieved with Exoseal to the Right Femoral artery. 10:45:24 Plavix 600 mg P.O. was administered by Kristin Paulino RN; for antiplatelet therapy; 10:45:26 Procedure ended.(Physican Out) 10:46:24 Procedure type changed to Cath procedure, Diagnostic procedure, LHC, LHC w/Coronaries, FFR/IVUS, Intra-Coronary IVUS Initial, Intra-Coronary IVUS Additional, Sedation Charges, Moderate Sedation up to 15 minutes, PCI procedure, PTCA, PTCA Initial x2 10:46:46 Fluoroscopy time 06.90 minutes. 10:46:51 Fluoroscopy dose: 1274 mGy 10:46:51 Flurop Dose total: 1274 10:46:56 Contrast amount:Isovue 300 81ml. 10:46:57 Sharps counted by scrub and verified by R.N. 10:47:03 Post right femoral artery:stable, soft, clean and dry 10:47:05 Post-op/insertion site Right Femoral artery dressed using a 4 x 4 and Tegaderm. 10:47:08 Post-procedure physical assessment completed. ASA score P 2 - A patient with mild systemic disease as per Dax Reynoso MD. 10:47:11 Post procedure rhythm: atrial flutter 10:47:13 Estimated blood loss: 10 ml 10:47:15 Post procedure instruction explained to patient.Patient verbalizes understanding. 10:47:16 Patient needs reinforcement of post procedure teaching. 10:49:00 Procedure and supply charges have been captured, reviewed, submitted and are correct. 10:49:02 Procedure Complication : No complications 10:49:03 Vital chart was stopped 10:49:03 See physician's report for complete and final results. 10:49:05 Report given to Pre/Post Procedure Room. 10:49:07 Patient transfered to Pre/Post Procedure Room with Bed. 10:49:09 Procedure ended. 10:49:09 Full Disclosure recording stopped 10:49:12 End room use (Document Last) Intervention Summary Intervention Notes Time ActionType Lesion and Equipment Action# Pressure Duration Attributes Used 10:40:13 Inflate Ramus EUPHORA 1 21 00:10 balloon 1.5 x 12 balloon ([id number]) 10:42:12 Inflate Ramus EUPHORA 2 21 00:10 balloon 2.5 x 15 Balloon ([id number]) 10:44:01 Inflate Prox CX EUPHORA 1 17 00:10 balloon 4.0 x 15 Balloon ([id number]) 10:44:10 Reinflate Prox CX EUPHORA 2 17 00:10 balloon 4.0 x 15 Balloon ([id number]) Device Usage Item Name Manufacture Quantity Catalog Number Hospital Part Current Minim al Lot# / Charge Number Stock Stock Serial# Code ACIST Acist 1 95280 362284 231542 773089 20 Syringe Medical (10080) Systems Inc Bag Microtek 1 673169 02134 383081 5 Decanter Medical Inc. () ACIST Hand Acist 1 56941 206818 056697 023058 5 Control Medical (21696) Systems Inc ACIST Acist 1 54839 558166 265994 073568 5 Manifold Medical (69157) Systems Inc Tegaderm 4 3M 1 1626W 657433 653859 615742 5 x 4 (1626W) Medline Medline 1 [id number] 571180 09406 716226 5 Cath Pack ([id number]) DIAGNOSTIC St Andrae 1 609689 214933 481388 128413 30 WIRE .035 260cm J wire (150941) DIAGNOSTIC Cardinal 1 WR7499 415210 21636 430841 30 Multipack Health 5Fr catheter set (WD5148) SHEATH 6FR Terumo 2 GTS030 856214 955430 650184 40 [place] (PBD099) MULTIPACK Cardinal 1 432807 5 Pigtail 5 Health Fr catheter MULTIPACK Cardinal 1 378498 5 JL 4.0 5Fr Health catheter MULTIPACK Cardinal 1 975937 5 3DRC 5Fr Health catheter INFLATOR Merit 1 KV4860 075742 678969 803179 15 Axine [employer] Technologies Medical BasixCompak (OO8611) CHOICE PT [place] 1 [id number] 014105 070631 552755 5 Extra Scientific Support 182cm wire ([id number]) GUIDE 6FR Cardinal 1 [id number] 326106 017477 222712 10 XBLAD 3.5 Health catheter (90813193) [place] 1 65555P 320528 805599 970973 8 Post Eagleye IVUS Catheter (51297E) EUPHORA 1.5 Medtronic 1 [id number] 067796 585330 998927 5 [id number] x 12 balloon ([id number]) EUPHORA 2.5 Medtronic 1 [id number] 421727 133006 938118 5 x 15 Balloon ([id number]) EUPHORA 4.0 Medtronic 1 [id number] 227584 689996 950023 5 [id number] x 15 Balloon ([id number]) EXOSEAL 6Fr Cardinal 1 EX600 159507 817000 362228 10 (EX600) Health Signature Audit [place] Stage Time Signature Unsigned Intra-Procedure 01/02/2018 Lyric Reddy 10:50:39 AM RT(R) Signatures Monitor : Lyric Reddy Signature : RT Date : Time : [facility] [address] [place] [address]
[2018-01-02] MEDS ORDERED: ASPIRIN325 MG PO (08:14)
[2018-01-02] MEDS ORDERED: BENICAR40 MG PO (08:14)
[2018-01-02 08:24] VITALS: BP 185/96; Ht 162.6 cm; Wt 113.6 kg
[2018-01-02 09:29] LABS: ANION GAP 11.4 mmol/L (8-16); CALCIUM 9.4 mg/dL (8.5-10.1); CARBON DIOXIDE 31.5 mmol/L (21.0-32.0)
[2018-01-02 09:35] LABS: POTASSIUM - SERUM 2.9 mmol/L (3.5-5.1)
[2018-01-02 09:42] LABS: BASOPHILS 0.2 % (0-2); EOSINOPHILS 1.1 % (0-7); HEMATOCRIT 41.3 % (36.0-48.0); HEMOGLOBIN 13.4 g/dL (12-16); IMMATURE GRANULOCYTES 0.2 % (0-5); LYMPHOCYTES 35.6 % (15-50); MCH 26.7 pg (26.0-34.0); MCHC 32.4 g/dL (31.0-37.0); MCV 82.3 fL (80.0-100.0); MEAN PLATELET VOLUME 12.2 fL (7.4-10.4); MONOCYTES 7.8 % (2-11); NEUTROPHILS 55.1 % (40-80); PLATELET COUNT 293 10x3/uL (130-400); RBC 5.02 10x6/uL (4.00-5.40); RDW 16.1 % (11.5-14.5); WBC 6.3 10x3/uL (4.8-10.8)
== END 2018-01-02 15:00 | disposition home or self-care (01) ==
LOC: D.CATH 07:46
PROVIDERS: Internal Medicine Interventional Cardiology
DX: I25.119 Atherosclerotic heart disease of native coronary artery with unspecified angina pectoris (principal); T82.855A Stenosis of coronary artery stent, initial encounter; Z01.812 Encounter for preprocedural laboratory examination

== ENCOUNTER 2018-02-20 12:53 | Emergency (ER) | payer MEDICARE ==
[~2018-02-20] VITALS: Ht 162.6 cm; Wt 79.5 kg
[2018-02-20 12:53] VITALS: Ht 162.6 cm; Wt 79.5 kg
[~2018-02-20 12:53] MED LIST changes: +ASPIRIN325 MG PO
[2018-02-20 13:22] LABS: BASOPHILS 0.2 % (0-2); EOSINOPHILS 0 % (0-7); HEMOGLOBIN 13.3 g/dL (12-16); IMMATURE GRANULOCYTES 0.2 % (0-5); LYMPHOCYTES 20.4 % (15-50); MCH 26.9 pg (26.0-34.0); MCHC 32.4 g/dL (31.0-37.0); MCV 82.8 fL (80.0-100.0); MEAN PLATELET VOLUME 11.4 fL (7.4-10.4); MONOCYTES 6.6 % (2-11); NEUTROPHILS 72.6 % (40-80); PLATELET COUNT 297 10x3/uL (130-400); RBC 4.95 10x6/uL (4.00-5.40); RDW 16.4 % (11.5-14.5); WBC 10.4 10x3/uL (4.8-10.8)
[2018-02-20 13:36] LABS: APTT 23.7 SECONDS (22.8-39.4); INR 0.96 (0.85-1.17); PROTIME 12.3 SECONDS (11.6-15.0)
[2018-02-20 13:49] LABS: ALKALINE PHOSPHATASE 163 U/L (46-116); ALT (SGPT) 48 U/L (10-68); BILIRUBIN - TOTAL 0.37 mg/dL (0.2-1.3); CALC OSMOLALITY 278 mosm/kg (275-300); CALCIUM 8.9 mg/dL (8.5-10.1); CARBON DIOXIDE 28.8 mmol/L (21.0-32.0); CHLORIDE - SERUM 100 mmol/L (98-107); CREATININE - SERUM 0.8 mg/dL (0.6-1.3); GLUCOSE 128 mg/dL (74-106); POTASSIUM - SERUM 3.5 mmol/L (3.5-5.1); PROTEIN - SERUM 8.2 g/dL (6.4-8.2); SODIUM 138 mmol/L (136-145); UREA NITROGEN 15 mg/dL (7-18); eGFR NON AFRICAN AMERICAN 78 mL/min (90-120)
[2018-02-20 13:50] LABS: UDS - AMPHET NEGATIVE QUAL (NEGATIVE); UDS - BARB NEGATIVE QUAL (NEGATIVE); UDS - BENZO POSITIVE QUAL (NEGATIVE); UDS - COCAINE NEGATIVE QUAL (NEGATIVE); UDS - OPIATE NEGATIVE QUAL (NEGATIVE); UDS - PCP NEGATIVE QUAL (NEGATIVE); UDS - THC NEGATIVE QUAL (NEGATIVE)
[2018-02-20 13:51] LABS: APPEARANCE HAZY (CLEAR); COLOR YELLOW (YELLOW)
[2018-02-20 13:52] LABS: BILIRUBIN NEGATIVE (NEGATIVE); GLUCOSE NEGATIVE (NEGATIVE); KETONE NEGATIVE (NEGATIVE); NITRITE NEGATIVE (NEGATIVE); PROTEIN 1+ mg/dL (NEGATIVE); SPECIFIC GRAVITY 1.015 (1.005-1.020); UROBILINOGEN NORMAL (NORMAL)
[2018-02-20 13:54] LABS: BACTERIA MANY /hpf (NONE SEEN); EPITHELIAL CELLS 0-5 /hpf (0-5); MUCUS >1+ /lpf (NONE SEEN); RED CELLS - URINE 0-5 /hpf (0-5); WHITE CELLS - URINE RARE /hpf (0-5)
[2018-02-20 14:00] LABS: CREATINE KINASE 349 UL (21-215); MAGNESIUM - SERUM 1.7 mg/dL (1.8-2.4)
[2018-02-20 14:02] LABS: TROPONIN-I < 0.017 ng/mL (0.000-0.060)
[2018-02-20 15:52] VITALS: BP 161/108
== END 2018-02-20 15:54 | disposition other institution (70) ==
LOC: D.ER 12:53
PROVIDERS: Family Medicine
DX: R40.4 Transient alteration of awareness (principal); I63.9 Cerebral infarction, unspecified; I10 Essential (primary) hypertension; I25.10 Atherosclerotic heart disease of native coronary artery without angina pectoris; I73.9 Peripheral vascular disease, unspecified; R20.2 Paresthesia of skin